=== PATIENT | female | born 1995 | race Caucasian/White ===

== ENCOUNTER 2024-11-24 10:12 | Outpatient (CLI) | payer OTHER, SELFPAY ==
--- NOTE | 2024-11-24 10:26 | CY_PTH ---
PATIENT: Beatrice Chacon LOC: ANHLAB #:[id number] AGE/SX: 29/F ROOM: RE11/24/[address]: Andrew Mcdonald MD : 1995 BED: DIS: 11/24/2024 SPEC #: [id number] RECD: 11/24/24 11:13 STATUS: JW REQ #: [id number] MARCIA: 11/24/24 10:[address]: Andrew Mcdonald DEPT: [facility] Cytology RECD BY: Paulina Galvan Tissues: A - Flow Procedures: Flow Cytometry
[2024-11-24 10:28] LABS: Basophils Percent Auto 0.2 % (0.2-1.2); Eosinophils Absolute Auto 0.9 K/mm3 (0-0.3); Eosinophils Percent Auto 9.2 % (0-4.4); Hemoglobin 10.3 g/dL (12.0-15.0); Immature Granulocyte Absolute 0.03 K/mm3 (0.00-0.031); Immature Granulocyte Percent A 0.3 % (0-0.5); Lymphocytes Absolute Auto 3.62 K/mm3 (0.9-3.2); Lymphocytes Percent Auto 37.5 % (18.3-44.2); Mean Corpuscular HGB Conc 33.2 g/dl (32-36); Mean Corpuscular Hemoglobin 29.7 pg (26-34); Mean Corpuscular Volume 89.3 fl (80-100); Mean Platelet Volume 8.5 fl (7.4-10.4); Monocytes Absolute Auto 0.4 K/mm3 (0.1-0.6); Monocytes Percent Auto 4.6 % (2.6-8.5); Neutrophils Absolute Auto 4.7 K/mm3 (1.3-6.7); Neutrophils Percent Auto 48.2 % (45.5-73.1); Platelet Count Result 436 k/mm3 (150-375); Red Blood Count 3.47 M/mm3 (4.2-5.4); Red Cell Distribution Width 13.7 % (11.5-14.5); White Blood Count 9.7 K/mm3 (4.5-10.0)
--- OUTSIDE RECORDS SUMMARY | 2024-11-24 10:56 | XMS_ITS | Encounter Summary ---
Author Organization [facility] Address 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 Restoration Specialist Name Role Phone Unavailable Primary Care Provider Unavailabl e Encounter Details Date Type Department Care Team ([facility] Contact Info) Description 10/03/2024 Telephone [facility] [address] [place] [address] Melissa Liriano, [facility] [id number] [place] [address] [phone] Social History Tobacco Use Types Packs/Day Years Used Date Smoking Tobacco: Former Cigarettes Alcohol Use Standard Drinks/Week Comments Not Currently 0 (1 standard drink = 0.6 oz pur e alcohol) Hx of binge drinking Food Insecurity Answer Date Recorded Patient needs follow up regardin 09/29/2024 Transportation Needs Answer Date Record ed Patient needs follow up regardin 09/29/2024 Utility Needs Answer Date Recorded Patient needs follow up regardin 09/29/2024 Education Answer Date Recorded What is the highest level of school you have completed or the highest degree you have received? Bachelor's degree (e.g., BA, AB, BS) 09/29/2024 Comments No Sex and Gender Information Value Date Recorded Sex Assigned at Not on file Legal Sex Female 10:15 PM CDT Gender Identity Not on file Sexual Orientation Not on file documented as of this encounter Plan of Treatment Upcoming Encounters Date Type Department Care Team (Late Contact Info) Description 12/01/2024 4:30 PM CDT Telephone Check Up [facility] Oncology and Hematology - Jimmy [address] [place] [address] Andrew Mcdonald MD [address] [place] [address] documented as of this encounter Visit Diagnoses Not on filedocumented in this encounter Additional Health Concerns Assessment Noted Time PHQ-9 Depression Total Score: 6 09/30/19 25 9:33 AM CDT documented as of this encounter
--- OUTSIDE RECORDS SUMMARY | 2024-11-24 10:56 | XMS_ITS | Data Portability ---
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 Patient will come back in a year unless there are new symptoms. [email or web address] Not available 11/22/2019 12:14:19 10/10/2022 10/10/2022 Annual gynecological exam performed. Patient will come back in a year unless there are new symptoms. [email or web address] Not available 10/10/2022 15:21:40 11/08/2024 11/08/2024 Annual gynecological exam performed. Patient will come back in a year unless there are new symptoms. [email or web address] Not available 11/08/2024 10:18:08 Plan of Treatment Reminders Order Date Submit Date Provider Last Modified By Organization Details Last Modified Time Details Appointments None recorded. Lab None recorded. Referral None recorded. Procedures None recorded. Surgeries None recorded. Imaging None recorded. Medication Orders ParaGard T 380A 380 square mm intrauterin e device 2022 023 [email or web address] Not available 11:42:05 Patient TargetsNo targets recorded. Patient InstructionsNo instructions recorded. Reason for Referral None Reported. Results Created Date Observation Date Name Description Value Unit Range Abnormal Flag Note LastModifiedBy Organization Detail LastModifiedTime 11/22/1911/24/2019 pap, LB Pap test thin prep Negati ve for Intrae pithel ial Lesion or Malign cuauhtemoc normal ACCES FLORINA #: [id number] [place] [address] e: Cervi rodney/E ndoce rvica l LMP: 10/25 Date Taken : 11/21 Speci men Type: ThinP rep Vial Date Repor maikel: 2019 Clini rodney Data: Cytot ech: Elisabeth Cadet , CT( CP) Date Repor maikel: 2019 Speci men Adequ acy: Satis facto ry for evalu ation Endoc ervic al/tr ansfo rmati on zone compo nent prese nt Gener al Categ oriza tion: NEGAT ISREAL FOR INTRA EPITH ELIAL LESIO N OR MALIG YUMIKO The follo wing tests have been order ed as reque sted and a separ ate repor t will be issue d: Chlam ydia, Gonor rhoea e, and Trich omona s This speci men has been yaya zed by the ThinP rep Imagi ng Syste m, an inter activ e compu ter syste m which denisa ts the [facility] of ThinP rep Pap Test slide s. Follo wing imagi ng, the slide was revie wed by a Cytot echno logis t and/o r Patho logis t. End of t Techn ical servi roselia provi ded by [facility] [employer] Patho logis [employer], d/b/a Yamila lubin, [address] [place] [address] Nikko Marx MD, Labor ator Dire tor. Case revie wed and diagn osis rende red at [facility] [employer] Patho logis Swidjit, [employer], d/b/a Yamila lubin, [address] [place] [address] Nikko Marx MD, Labor ator Dire tor. CONFI DENTI AL Not Available [facility] ([facility]) [address], [place], [address], 11/24/2019 14:06:36 11/22/19 20 11/24/2019 CT + NG DNA, PCR, unspe cifie d speci men trichomonas vaginalis, aptima (panther) NOT DETECT ED normal DNA testi ng perfo rmed by Trans cript ion Media maikel Ampli ficat ion (TMA) These resul ts shoul d be inter prete d in light of all clini rodney and labor atory findi ngs. This assay is highl y accur ate, but rare false posit isreal and negat isreal resul ts may occur . Posit isreal resul ts in low preva lence popul ation s may requi re re-ev aluat ion. A negat isreal resul t does not precl ude a possi ble infec tion due to a speci men inade quacy or sampl ing error . Test perfo rmed by [employer] [facility] [employer], [employer], d/b/a [facility], [address], [place] [address] , Izzy Bello ra, DO, Labor atory Direc tor. Not Available [facility] ([facility]) [address] [place] [address] [address], [place], [address], 11/24/2019 14:06:37 11/22/19 20 11/24/2019 CT + NG DNA, PCR, unspe cifie d speci men neisseria gonorrhoeae, aptima NOT DETECT ED normal DNA testi ng perfo rmed by Trans cript ion Media maikel Ampli ficat ion (TMA) These resul ts shoul d be inter prete d in light of all clini rodney and labor atory findi ngs. This assay is highl y accur ate, but rare false posit isreal and negat isreal resul ts may occur . Posit isreal resul ts in low preva lence popul ation s may requi re re-ev aluat ion. A negat isreal resul t does not precl ude a possi ble infec tion due to a speci men inade quacy or sampl ing error . Test perfo rmed by [employer] Patho logis Swidjit, [employer], d/b/a [facility], [address], [place] [address] , Izzy Bello ra, DO, Labor atory Direc tor. Not Available [facility] ([facility]) [address] [place] [address], [place], [address], 11/24/2019 14:06:37 11/22/19 20 11/24/2019 CT + NG DNA, PCR, unspe cifie d speci men chlamydia trachomatis, aptima NOT DETECT ED normal DNA testi ng perfo rmed by Trans cript ion Media maikel Ampli ficat ion (TMA) These resul ts shoul d be inter prete d in light of all clini rodney and labor atory findi ngs. This assay is highl y accur ate, but rare false posit isreal and negat isreal resul ts may occur . Posit isreal resul ts in low preva lence popul ation s may requi re re-ev aluat ion. A negat isreal resul t does not precl ude a possi ble infec tion due to a speci men inade quacy or sampl ing error . Test perfo rmed by [facility], d/b/a Yamila lubin, [address] [place] [address], [place] [address] , Izzy Bello ra, DO, Labor atory Direc tor. Not Available [facility] ([facility]) [address] [place] [address] [address], [place], [address], 11/24/2019 14:06:37 08/30/19 23 08/29/2022 CT/GC AND TRICH OMONA S VAGIN CAMERON (RRNA ), URINE chlamydia trachomatis, PCR Negati ve negati ve Not Available [facility] (Lab) [address], [place], [address], 08/30/2022 13:51:28 08/30/19 23 08/29/2022 CT/GC AND TRICH OMONA S VAGIN CAMERON (RRNA ), URINE neisseria gonorrhoeae, PCR Negati ve negati ve Not Available [facility] (Lab) [address] [facility], [place], [address], 08/30/2022 13:51:28 08/30/19 23 08/29/2022 CT/GC AND TRICH OMONA S VAGIN CAMERON (RRNA ), URINE trichomonas vaginalis ribosomal RNA (rrna) Negati ve negati ve Not Available [facility] (Lab) [address] [facility], [place], [address], 08/30/2022 13:51:28 10/11/19 23 10/10/2022 IMAGE GUIDE D PAP AND HPV REGAR DLESS image guided Pap, HPV regardless of Pap result SEE RESULT S BELOW CASE REPOR T: Cytol ogy Gynec ologi rodney Repor t Case: [id number] Aut[address] presley garcia Provi melanie: [place] 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 FINAL DIAGN OSIS: Negat isreal for Intra epith elial Janis n or Migdalia ycr (NIL) . Ankur irwin brian d by Kimberly Powell CT on 023 at 9:25 AM ----- ----- ----- ----- ----- ----- ----- ----- ----- ----- ----- ----- ----- ----- ----- ----- ----- ---- HPV RESUL TS: HPV mRNA E6/E7 : No HPV mRNA Detec maikel NOTE: This high risk HPV mRNA assay detec ts fourt een high- risk HPV types (16, 18, 31, 33, 35, 39, 45, 51, 52, 56, 58, 59, 66, 68) witho ut diffe renti ation . COMME NT: This speci men was revie wed by a Cytot echno logis t and/o r Patho logis t (as indic ated in this repor t) after evalu ation using the Thinp rep Imagi ng Syste m. CLINI RODNEY INFOR MATIO N: Menst rual Statu s: LMP (if appli cable ): Clini rodney Histo ry/Pr eviou s Pap: Type of Neopl ariadna (if appli cable ): Signi fican t Clini rodney Findi ngs: Other Histo ry: Hormo robyn (if appli cable ): PAP EDUCA NAIMA L NOTE: The Pap Test is a scree david test with an inher ent false negat isreal rate. Liqui d-bas ed sampl ing may decre ase, but will not elimi timmy, false negat isreal resul ts. A negat isreal resul t does not precl ude the prese nce and/o r devel opmen t of disea se, since the prese nce of abnor mal cells in the sampl e depen ds on the locat ion of the lesio n and sampl ing techn ique. Wei nued regul ar scree david is the best metho d of cance r preve ntion . If repor maikel cytol ogic findi ng do not corre late with physi rodney and/o r histo rical findi ngs, furth er inves tigat ion is recom bharat d, as clini espinoza bull nted. Not Available [facility] (Lab) [address] [facility], [place], [address], 10/14/2022 10:27:48 Result Notes None recorded. Procedures Surgical History Date Name Laterality Status Provider Name and Address Organization Details Recorded Time 3 IUD Insertion completed Talia Schmitz, [facility] [address], [place], [address], [facility] 08/29/2022 11:42:21 Imaging Results None recorded. Procedure Notes None recorded. Medical Equipment None Reported. Allergies No known drug allergies Medications Name Sig Start Date Stop Date Status Note LastModified by Organization Details LastModified Time buspirone 5 mg tablet TAKE 1 TABLET BY MOUTH TWICE DAILY 11/08 completed Not Available Not Available Not Available clonidine HCl 0.1 mg tablet TAKE 1 TABLET BY MOUTH TWICE DAILY 11/08 completed Not Available Not Available Not Available trazodone 50 mg tablet TAKE 1 TABLET BY MOUTH ONCE DAILY AT BEDTIME active Not Available Not Available No t Available meloxicam 15 mg tablet TAKE 1 TABLET BY MOUTH ONCE DAILY NEEDED FOR 30 DAYS active Not Available Not Available No t Available hydroxyzine HCl 25 mg tablet TAKE 1 TABLET BY MOUTH THREE TIMES DAILY NEEDED FOR ANXIETY OR SLEEP active Not Available Not Available No t Available mupirocin 2 % topical ointment APPLY OINTMENT TOPICALLY TO AFFECTED AREA TWICE DAILY active Not Available Not Available No t Available ergocalcife rol (vitamin D2) 1,250 mcg (50,000 unit) capsule TAKE 1 CAPSULE BY MOUTH ONCE A WEEK active Not Available Not Available No t Available methylpredn isolone 4 mg tablets in a dose pack TAKE BY MOUTH DIRECTED ON INSIDE OF PACKAGE STARTING ON 10/28/2411/08 completed Not Available Not Available Not Available ParaGard T 380A 380 square mm intrauterin e device Take 1 device every day by intrauter ine route as directed. 2022 active Not Available Not Available Not Avai lable hydroxyzine pamoate 25 mg capsule TAKE 1 CAPSULE BY MOUTH EVERY 4 HOURS NEEDED FOR ANXIETY 11/08 completed Not Available Not Available Not Available aripiprazol e 10 mg tablet TAKE 1 TABLET BY MOUTH ONCE DAILY active Not Available Not Available No t Available atomoxetine 40 mg capsule TAKE 1 CAPSULE BY MOUTH ONCE DAILY active Not Available Not Available No t Available aripiprazol e 5 mg tablet TAKE 1 TABLET BY MOUTH EVERY DAY 11/08 completed Not Available Not Available Not Available nitrofurant oin monohydrate /macrocryst als 100 mg capsule TAKE 1 CAPSULE BY MOUTH TWICE DAILY FOR 5 DAYS 11/08 completed Not Available Not Available Not Available duloxetine 30 mg capsule,del ayed release TAKE 1 CAPSULE BY MOUTH ONCE DAILY active Not Available Not Available No t Available duloxetine 60 mg capsule,del ayed release TAKE 1 CAPSULE BY MOUTH EVERY DAY 11/08 completed Not Available Not Available Not Available aripiprazol e 2 mg tablet TAKE 1 TABLET BY MOUTH EVERY DAY 11/08 completed Not Available Not Available Not Available lisdexamfet amine 60 mg capsule TAKE 1 CAPSULE BY MOUTH EVERY DAY active Not Available Not Available No t Available Vyvanse 40 mg capsule TAKE 1 CAPSULE BY MOUTH EVERY DAY IN THE MORNING 08/29 completed Not Available Not Available Not Available desvenlafax ine succinate ER 50 mg tablet,exte nded release 24 hr TAKE 1 TABLET BY MOUTH ONCE DAILY active Not Available Not Available No t Available desvenlafax ine succinate ER 100 mg tablet,exte nded release 24 hr TAKE 1 TABLET BY MOUTH EVERY DAY 11/08 completed Not Available Not Available Not Available desvenlafax ine succinate ER 25 mg tablet,exte nded release 24 hr TAKE 1 TABLET BY MOUTH EVERY DAY 11/08 completed Not Available Not Available Not Available Vitals Date Recorded Systolic blood pressure Diastolic blood pressure Provider Name and Address Organization Details Last Updated DateTime 08/29/2022 122 mm[Hg] 80 mm[Hg] Talia Schmitz, [facility] [address], [place], [address], [facility] 08/29/2022 11:15:21 Date Recorded Body height Body mass index (BMI) Body weight Provider Name and Address Organization Details Last Updated DateTime 08/29/2022 170.18 cm 33.3 kg/m2 60781.46 radha Chandler [facility] 08/29/2022 11:09:25 Date Recorded Systolic blood pressure Diastolic blood pressure Provider Name and Address Organization Details Last Updated DateTime 10/10/2022 130 mm[Hg] 80 mm[Hg] Talia Schmitz, [facility] [address], [place], [address], [facility] 10/10/2022 15:46:26 Date Recorded Body height Body mass index (BMI) Body weight Provider Name and Address Organization Details Last Updated DateTime 10/10/2022 170.18 cm 34.3 kg/m2 85047.73 g Violeta Mcclain [facility] 10/10/2022 15:22:22 Date Recorded Body height Body mass index (BMI) Body weight Systolic blood pressure Diastolic blood pressure Provider Name and Address Organization Details Last Updated DateTime 11/08/2024 170.18 cm 32.6 kg/m2 97120.21 g 109 mm[Hg] 78 mm[Hg] Breanne Mckeon [facility] 5 10:18:42 Date Recorded Body height Body mass index (BMI) Body weight Systolic blood pressure Diastolic blood pressure Provider Name and Address Organization Details Last Updated DateTime 11/22/2019 171.45 cm 30.6 kg/m2 80949.29 g 119 mm[Hg] 83 mm[Hg] Melyssa Stanley [facility] 0 12:21:46 Social History Question Answer Notes LastModified by Organizat ion Details LastModified Time Tobacco Smoking Status Former Smoker Darcy Espinozashlomo moser, [facility] 08/29/2022 11:09:43 How Many Years Have You Consumed Alcohol? 8 Information not available 08/29/2022 Are You Blind Or Do You Have Difficulty Seeing? No Information not available 08/29/2022 What Is Your Level Of Caffeine Consumption? Occasional Information not available 08/29/2022 How Much Tobacco Do You Chew? None Information not available 08/29/2022 In The 14 Days Before Symptom Onset, Have You Had Close Contact With A Laboratory-confir med COVID-19 While That Case Was Ill? No Information not available 08/29/2022 In The 14 Days Before Symptom Onset, Have You Had Close Contact With A Person Who Is Under Investigation For COVID-19 While That Person Was Ill? No Information not available 08/29/2022 Have You Been To An Area Known To Be High Risk For COVID-19? No Information not available 08/29/2022 Are You Deaf Or Do You Have Serious Difficulty Hearing? No Information not available 08/29/2022 What Type Of Diet Are You Following? REGULAR Information not available 08/29/2022 What Is The Highest Grade Or Level Of School You Have Completed Or The Highest Degree You Have Received? [id number] Information not available 08/29/2022 Are There Any Guns Present In Your Home? Yes Information not available 08/29/2022 Do You Use Protection During Sex? No Information not available 08/29/2022 Do You Use Your Seat Belt Or Car Seat Routinely? Yes Information not available 08/29/2022 Do You Have Smoke And Carbon Monoxide Detectors In Your Home? Yes Information not available 08/29/2022 How Much Tobacco Do You Smoke? No Information not available 08/29/2022 Do You Use Sunscreen Routinely? Yes Information not available 08/29/2022 Have You Used IV Drugs? No Information not available 08/29/2022 Do You Have Difficulty Walking Or Climbing Stairs? No Information not available 08/29/2022 Sex: Unknown Functional Status Question Answer Note LastModified by Organizat ion Details LastModified Time Do you use any illicit or recreational drugs? No Information not available 08/29/2022 What is your level of alcohol consumption? Occasional Information not available 08/29/2022 Are you able to walk? YESWOREST Information not available 08/29/2022 Are you able to care for yourself? 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 No Information not available 08/29/2022 What is your exercise level? Occasional Information not available 08/29/2022 Mental Status Question Answer Note LastModified by Organization D etails LastModified Time Do you feel stressed (tense, restless, nervous, or anxious, or unable to sleep at night)? [id number] Information not available 08/29/2022 Family History Relationship Description Onset Age of this Age Resolved Age Notes LastModified by Organization Details LastModified Time Father Hypertensive disorder [email or web address] Not available 2019 12:17:12 Sister Malignant tumor of cervix [email or web address] Not available 2019 12:17:39 Sister Cyst of ovary [email or web address] Not available 08/2024 09:48:12 Medical History Condition Response Allergies (Food, seasonal, environmental ) N Breast Cancer N Drug/Latex Allergies/Reactions N Blood Transfusion N Dermatologic Disorders N Lung Disease N Defects or Inherited Disease N Breast Problem N Gestational Diabetes N Hematologic disorders N Anesthesia Complications N History of STI Y Deep Vein Thrombosis N Polycystic ovary syndrome N Anxiety Disorder Y Autoimmune disease N Arthritis N Infertility N Polyps N Acid Reflux (GERD) N History of abnormal pap N Cancer N Stroke N Varicosities N Neurologic/Epilepsy N Endometriosis N High Cholesterol N Headaches N Fibromyalgia N Kidney Disease N Heart Problems N Kidney or Bladder Problems N Thyroid Problems N GI Problems N Eating Disorder N Anemia N Art (IVF or FET) N Psychiatric Illness N Ovarian Cancer N Diabetes N Pulmonary (TB, Asthma) N Hepatitis/Liver Disease N Eczema N Urinary Tract Infection N Abuse/Domestic Violence N Asthma N Trauma/Violence N Depression/ depression Y Heart Disease N Pre-Eclampsia N Hypertension N Osteoporosis N Thrombophilias N Gynecological History Statement/Question Response Date of Last Mammogram Flow Moderate Date of LMP 10/16/2024 N Was last menstrual period normal Y STIs/STDs Y Date of Last Colonoscopy None Desired Control Method IUD Abnormal Pap N On BCP's at Conception? N HPV Vaccine Y Duration of Flow (days) 5 Current Control Method IUD Are cycles usually normal Y Frequency of Cycle (Q days) 30 Sexually Active? Y Menses Monthly Y Date of DEXA bone scan Age of first menstrual cycle 12 Date of Last Pap Smear Sexual Problems? N LMP Definite N Obstetrics History GPAL:G 0 P 0 0 0 0 Past Encounters Encounter ID Performer Location Encounter Start Date Encounter Closed Date Diagnosis/Indication Diagnosis SNOMED-CT Code Diagnosis ICD10 Code Diagnosis Note [id number] Talia Schmitz [facility] [address] [address] 11/22/2019 12:10:51 11/22/2019 16:54:55 Gynecologic examination 84794030 Z01.419 Take Calcium with Vitamin D 1200mg daily if not receiving in daily diet. It is strongly advised to have an annual flu shot and up can obtain at most pharmacies . If you have not had a TDap shot in the last 10 years you should obtain one as well. Discussed with patient & provided with informatio n regarding Gardisil vaccine to prevent the 4 strains for HPV that cause cervical cancer if under age 26. Encourage safe sexual practices, to use condoms and limit partners if not already in a monogamous relationsh ip. Do monthly self breast exams. Have mammogram yearly or every other year depending on family history. BRCA testing is now available for patients with strong genetic history of female cancer. If interested contact the office. Engage in daily exercise of low impact aerobic exercise 45-60 minutes 4-5 times weekly. Avoid tobacco and illicit drugs as well as using moderation with alcohol intake less than 1-2 8 oz beverages daily. This lifestyle behavior pattern will lead to less health conditions and longer life span. If BMI greater than 25 weight watchers or dietary consult advised. Patient received above instructio ns, and questions have been answered. If you have any questions please call or respond to this email. Patient was made aware of the patient portal and may obtain a paper copy of today's plan if desired. [facility] ion care management [id number] Z30.9 Discussed all control options and pt would like Paraguard IUD. I have discussed in detail all risks and benefits including risk of infection and perforatio n. She understand s she will need to contact office with next menses or may abstain, complete serum HCG day before placement, if neg can have IUD placed next day. Aware of need to verify with insurance device coverage. Literature given. All questions answered to patient satisfacti on. [id number] Talia Schmitz , [facility] [address] [address] 08/29/2022 11:00:46 08/29/2022 11:50:03 Insertion of intrauterine contraceptive device [id number] Z30.430 She has been counseled on all of the r/b/a of placement of an intrauteri ne device that include but are not limited to uterine perforatio n, injury to cervix, vagina, bladder, and bowel.Risk s of bleeding due to injury or increased irregular bleeding due to progestin effect of the device. Risks of infection would be increased within the first 21 days of placement with concommita nt cervicitis . She understand s that the device will need to be removed in this instance due to increased risk of Pelvic inflammato ry disease. Patient is aware she is at higher risk for STD and if contracted she could lose her fertility. Pt is aware that if occurs that she should contact office immediatel y to rule out ectopic which could be life threatenin g. IUD will also need to be removed and this could cause miscarriag e. Patient also informed that in the event her strings are absent or embedded at the time of removal she may need to have the IUD surgically removed. She was informed of the above and properly consented. IUD placed w/o complicati on. Patient should return to office after next period to check for string placement. Patient to expect irregular bleeding but should be seen in the ED if bleeding increases to soaking a pad an hour for at least 2 hours. She verbalized understand ing. RTO x 6wks for string check & we will also complete her WWE with pap smear at that time as discussed. STD urine sent today [id number] Talia Schmitz , [facility] [address] [address] 10/10/2022 15:13:53 10/10/2022 15:50:59 Gynecologic examination [id number] Z01.419 Take Calcium with Vitamin D 1200mg daily if not receiving in daily diet. It is strongly advised to have an annual flu shot and up can obtain at most pharmacies . If you have not had a TDap shot in the last 10 years you should obtain one as well. Discussed with patient & provided with informatio n regarding Gardisil vaccine to prevent the 4 strains for HPV that cause cervical cancer if under age 26. Encourage safe sexual practices, to use condoms and limit partners if not already in a monogamous relationsh ip. Do monthly self breast exams. Have mammogram yearly or every other year depending on family history. BRCA testing is now available for patients with strong genetic history of female cancer. If interested contact the office. Engage in daily exercise of low impact aerobic exercise 45-60 minutes 4-5 times weekly. Avoid tobacco and illicit drugs as well as using moderation with alcohol intake less than 1-2 8 oz beverages daily. This lifestyle behavior pattern will lead to less health conditions and longer life span. If BMI greater than 25 weight watchers or dietary consult advised. Patient received above instructio ns, and questions have been answered. If you have any questions please call or respond to this email. Patient was made aware of the patient portal and may obtain a paper copy of today's plan if desired. Pap sent STD Screen already UTD Genetic Screen discussed Colon Screen na Dexa Screen na Routine Labs PCPMammo-n a Intrauteri ne device check [id number] Z30.431 Patient is here for 4-6wk IUD string check. She denies complicati ons, pain, or unpleasant side effects. Happy with this control method. Wishes to continue. [id number] AMADO Agarwal [facility] [address] [address] 11/08/2024 09:47:56 11/08/2024 10:49:17 Gynecologic examination [id number] Z01.419 WWEBC - ParaGuard IUD (inserted 08/29/2022 and will 08/28/2032) Pap - UTD/not indicated todaySTI screen - declinedRo utine labs - PCPRTC in 1 yr or sooner if needed It is strongly advised to have an annual flu shot and up can obtain at most pharmacies . If you have not had a TDap shot in the last 10 years you should obtain one as well. Discussed with patient & provided with informatio n regarding the HPV vaccine if applicable . Encourage safe sexual practices, to use condoms and limit partners if not already in a monogamous relationsh ip. Do monthly self breast exams. BRCA testing is now available for patients with strong genetic history of female cancer. If interested contact the office. Engage in regular exercise. Avoid tobacco and illicit drugs. This lifestyle behavior pattern will lead to less health conditions and longer life span. If BMI greater than 25 dietary consult advised. Questions answered. Health Concerns Section Related Observation LastModified by Organization Detai ls LastModified Time None Recorded Concern Status LastModified by Organization Details LastModified Time None Recorded Advance Directives Directive None Recorded Payers Insurance Date Sequence Insurance Name Policy Number Policy Fischer Covered Member ID Fischer Member ID Guarantor Name 08/28/2022 1 [place] [id number] Beatrice Chacon [id number] Beatrice Chacon 11/06/2024 1 [facility] - DOS ON OR AFTER 20 (MEDICAID REPLACEMENT - HMO) Beatrice Chacon [id number] [facility] 11/06/2024 1 TYLER [id number] Beatrice Saunders [facility] [id number] [facility] Notes Date Note Type Note Provider Name and Address Organization Details Recorded Time 11/22/2019 text/html Annual GYNReport ed bypatient.History:n o gynecologic complaints Menstrual cycle:Normal menses Urinary symptoms:No hematuria; No incontinence Vulva:No genital lesion Vagina:Normal vaginal discharge Breast:No breast pain; No breast lump; No nipple discharge Current Contraception:Monog amous relationship; Wants to discuss contraceptive options Sexual complaints:No sexual complaints; No pain during intercourse; Normal libido Menopausal Symptoms:No menopausal symptoms; Normal vaginal lubrication Psychological symptoms:No depression; No anxiety; No PMDD Preventive measures:Encourage self breast examination; Encourage regular exercise; Encourage no tobacco use GANESH Goldstein [address], [place], [address], [facility] 11/22/2019 15:47:16 08/29/2022 text/html Patient presents for IUD insertion. GANESH Goldstein [address], [place], [address], [facility] 08/29/2022 11:42:42 10/10/2022 text/html Annual GYNReport ed bypatient.Menstrual cycle:Normal menses Urinary symptoms:No hematuria; No incontinence Vulva:No genital lesion Vagina:Normal vaginal discharge Breast:No breast pain; No breast lump; No nipple discharge Current Contraception:Satis fied with current contraception; Intrauterine device (iud) (Paraguard) Sexual complaints:No sexual complaints; No pain during intercourse; Normal libido Menopausal Symptoms:No menopausal symptoms; Normal vaginal lubrication Psychological symptoms:No depression; No anxiety; No PMDD Preventive measures:Encourage self breast examination; Encourage regular exercise; Encourage no tobacco use; Encourage regular mammograms starting age 40; Followed with yearly pap smears GANESH Goldstein [address], [place], [address], [facility] 10/10/2022 15:50:21 11/08/2024 text/html Annual GYNReport ed bypatient.Menstrual cycle:Normal menses Urinary symptoms:No hematuria; No incontinence Vulva:No genital lesion Vagina:Normal vaginal discharge Breast:No breast pain; No breast lump; No nipple discharge Current Contraception:Satis fied with current contraception; Intrauterine device (iud) Sexual complaints:No sexual complaints; No pain during intercourse; Normal libido Menopausal Symptoms:No menopausal symptoms; Normal vaginal lubrication Psychological symptoms:No depression; No anxiety; No PMDD Preventive measures:Encourage self breast examination; Encourage regular exercise; Encourage no tobacco use; Encourage regular mammograms starting age 38Notes:29yo wweBC - ParaGuard IUD (inserted 08/29/2022)no h/o abnormal papslast pap 10/2022 : nilm, HPV (-) AMADO Agarwal [address], [place], [address], [facility] 11/08/2024 10:48:22 OBGyn Episode No OBEpisode recorded.
--- OUTSIDE RECORDS SUMMARY | 2024-11-24 10:56 | XMS_ITS | Clinical Summary ---
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 Active hydrOXYzine HCL (ATARAX) 25 mg tablet Take 25 mg by mouth 3 times daily as needed for Anxiety. Active traZODone (DESYREL) 50 mg tablet Take 50 mg by mouth daily at bedtime. Active atomoxetine (STRATTERA) 40 mg capsule Take 1 Capsule (40 mg) by mouth daily. 30 Capsule Active DULoxetine (CYMBALTA) 30 mg Capsule, Delayed Release(E.C.) Take 60 mg by mouth daily. Active desvenlafaxine (PRISTIQ) 100 mg Extended Release 24 hour tablet Take by mouth daily with breakfast. 11/17/19 25 Discontinu ed(Duplica te Therapy) Active Problems Problem Noted Date Diagnosed Date Major depressive disorder, recurrent, moderate 0 09/29/2024 FRANK (generalized anxiety disorder) 09/29/2024 Brief psychotic disorder 09/29/2024 Encounters Date Type Department Care Team Description 11/21/2024 Abstract [facility] Oncology [facility] Hematology [address] [place] [id number] Andrew Mcdonald MD 11/16/2024 3:00 PM CDT Office Visit [facility] Oncology and Hematology - [address] [place] [phone] Andrew Mcdonald MD Leukocytosis, unspecified type (Primary Dx) 10/26/2024 8:53 AM CDT - 10/26/2024 11:59 PM CDT Hospital Encounter [facility] [address] [place] [address] [place] [address] Radha Pro, VISH Discharge Disposition: Home or Self Care 10/25/2024 9:00 AM CDT - 10/25/2024 11:59 PM CDT Hospital Encounter [facility] [address] [place], [place] [address] [address] Radha Pro NP Discharge Disposition: Home or Self Care 10/20/2024 9:00 AM CDT - 10/20/2024 11:59 PM CDT Hospital Encounter [facility] [address] [place], [place] [address] [address] Radha Pro NP Discharge Disposition: Home or Self Care 10/19/2024 9:00 AM CDT - 10/19/2024 11:59 PM CDT Hospital Encounter [facility] [address] [place], [place] [address] [address] Radha Pro, VISH Discharge Disposition: Home or Self Care 10/18/2024 9:00 AM CDT - 10/18/2024 11:59 PM CDT Hospital Encounter [facility] [address] [place], [place] [address] [address] Radha Pro NP Discharge Disposition: Home or Self Care 10/13/2024 9:00 AM CDT - 10/13/2024 11:59 PM CDT Hospital Encounter [facility] [address] [place], [place] [address] [address] Radha Pro NP Discharge Disposition: Home or Self Care 10/12/2024 9:00 AM CDT - 10/12/2024 11:59 PM CDT Hospital Encounter [facility] [address] [place] [address] Radha Pro, VISH Discharge Disposition: Home or Self Care 10/11/2024 9:00 AM CDT - 10/11/2024 11:59 PM CDT Hospital Encounter [facility] [address] [place] [address] [place] [address] Radha Pro, VISH Discharge Disposition: Home or Self Care 10/06/2024 9:00 AM CDT - 10/06/2024 11:59 PM CDT Hospital Encounter [facility] [address] [place] [address] Radha Pro, VISH Discharge Disposition: Home or Self Care 10/05/2024 9:00 AM CDT - 10/05/2024 11:59 PM CDT Hospital Encounter [facility] [address] [place] [address] [place] [address] Radha Pro, VISH Discharge Disposition: Home or Self Care 10/04/2024 9:00 AM CDT - 10/04/2024 11:59 PM CDT Hospital Encounter [facility] [address] [place] [address] [place] [address] Radha Pro, VISH Discharge Disposition: Home or Self Care 10/03/2024 Telephone [facility] [address] [place] [address] [place] [address] Melissa Liriano LPC 09/30/2024 Telephone [facility] [address] [place] [address] [place] [address] Brinda Duval, JAMAAL Follow Up 09/29/2024 8:00 AM CDT - 09/29/2024 11:59 PM CDT Hospital Encounter [facility] [address] [place] [address] Radha Pro NP Discharge Disposition: Home or Self Care 09/28/2024 [facility] [address] [place] [address] Brinda Duval, EXCEPTIONAL NEEDS TEACHER Follow Up 09/27/2024 [facility] [address] [place] [address] Brinda Duval, EXCEPTIONAL NEEDS TEACHER Follow Up 09/26/2024 [facility] [address] [place] [address] Brinda Duval, EXCEPTIONAL NEEDS TEACHER Follow Up 09/26/2024 [facility] [address] [place] [address] Brinda Duval, EXCEPTIONAL NEEDS TEACHER Follow Up 09/23/2024 [facility] [address] [place] [address] Brinda Duval, EXCEPTIONAL NEEDS TEACHER Follow Up 09/22/2024 [facility] [address] [place] [address] Brinda Duval, EXCEPTIONAL NEEDS TEACHER Follow Up 09/21/2024 [facility] [address] [place] [phone] Brinda Duval, EXCEPTIONAL NEEDS TEACHER Follow Up 09/20/2024 External Device Data [facility] Provider, Abstract 09/20/2024 External Device Data [facility] Provider, Abstract 09/20/2024 External Device Data [facility] Provider, Abstract 09/19/2024 8:14 AM CDT - 09/19/2024 11:59 PM CDT Hospital Encounter [facility] [address] [place] [phone] Daly Luu MD [facility] Intake, Nurse Discharge Disposition: Home or Self Care from Last 3 Months Family History Medical History Relation Name Comments No Known Problems Brother Anxiety Father Arthritis Father Depression Father Heart Disease Father Hypertension Father Anxiety Mother Depression Mother Heart Disease Mother Hypertension Mother No Known Problems Sister 1 No Known Problems Sister 2 No Known Problems Sister 3 Relation Name Status Comments Brother Father Alive Mother Sister 1 Alive Sister 2 Alive Sister 3 Alive Social History Tobacco Use Types Packs/Day Years Used Date Smoking Tobacco: Former Cigarettes Q uit: 11/16/2022 Tobacco Cessation:Counseling Given: Not Answered Alcohol Use Standard Drinks/Week Comments Not Currently [...] on file Sexual Orientation Not on file Last Filed Vital Signs Vital Sign Reading Time Taken Comments Blood Pressure 114/73 11/16/2024 2:37 PM CDT Pulse 104 11/16/2024 2:37 PM CDT Temperature 36.6 C (97.9 F) 11/16/2024 2:37 PM CDT Respiratory Rate 14 11/16/2024 2:37 PM CDT Oxygen Saturation 98% 11/16/2024 2:37 PM CDT Inhaled Oxygen Concentration - - Weight 96.1 kg (211 lb 12.8 oz) 11/16/2024 2:37 PM CDT Height 170.2 cm (5' 7) 11/16/2024 2:37 PM CDT Body Mass Index 33.17 11/16/2024 2:37 PM CDT Plan of Treatment Upcoming Encounters Date Type Department Care Team (Late st Contact Info) Description 12/01/2024 4:30 PM CDT Telephone Check Up [facility] Oncology and Hematology - [address] [place] [address] Andrew Mcdonald MD [address] [place] [address] Health Maintenance Due Date Last Done Comments HEPATITIS B VACCINES (1 of 3 - 19+ 3-dose series) 2012 HPV/Cotest (21-29) 2014 HPV/Cotest (30-65) 2023 INFLUENZA VACCINE (#1) 2024 COVID-19 Vaccine (2023- season) 2024 03/14/2021, 02/14/2021 CERVICAL CANCER SCREENING 10/10/2025 PAP SMEAR 10/10/2025 10/10/2022 Preventative Visit-Managed Medicaid 11/09/2025 11/08/2024, 10/10/2022, 11/22/2019, Additional history exists DTAP/TDAP/TD VACCINES (2 - Td or Tdap) 05/22/2026 05/22/2016 HPV VACCINES Aged Out No longer eligi ble based on patient's age to complete this topic Insurance MEDICAID [place] Advance Directives For more information, please contact: [phone] Documents on File Type Date Recorded 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
--- OUTSIDE RECORDS SUMMARY | 2024-11-24 10:56 | XMS_ITS | Referral Summary ---
Author Organization [facility] Address [address] [place] [id number] Care Team Providers Care Log Loader Name Role Phone Sahara Rapp NP Primary Care Provider Encounters Date Type Department Care Team Description 09/30/2024 11:50 AM CDT - 09/30/2024 12:[address] [facility] Emergency Department [address] [place] [phone] Cystitis (Primary Dx); Leukocytosis, unspecified type Discharge Disposition: Discharge to home or self care 08/30/2024 8:20 PM CDT - 08/31/2024 5:[address] [facility] Emergency Department [address] [place] [phone] Tico Coe Jr., MD Abbeg, Art Mary, Suicidal ideation (Primary Dx) Discharge Disposition: Discharge to a short term hospital for IP from Last 3 Months Allergies No known active allergies Medications hydrocortisone (ANUSOL-HC) 25 mg suppository Insert 1 suppository (25 mg total) into the rectum 2 (two) times a day 12 suppository 10/01/19 25 Active Active Problems Problem Noted Date Diagnosed Date Anxiety 10/23/2016 Immunizations Immunization Administration Dates Next Due Tdap 05/22/2016 Social History Tobacco Use Types Packs/Day Years Used Date Smoking Tobacco: Never Assessed Personal Safety Answer Date Recorded Have you ever been in or are you currently in a harmful physical or emotional relationship or is someone making you feel afraid or unsafe? Denies 09/30/2024 Comments No Sex and Gender Information Value Date Recorded Sex Assigned at Not on file Legal Sex Female 12:49 AM [employer] Gender Identity Not on file Sexual Orientation Not on file Last Filed Vital Signs Vital Sign Reading Time Taken Comments Blood Pressure 114/75 09/30/2024 12:55 PM CDT Pulse 94 09/30/2024 12:55 PM CDT Temperature 36.8 C (98.3 F) 09/30/2024 10:53 AM CDT Respiratory Rate 18 09/30/2024 12:55 PM CDT Oxygen Saturation 99% 09/30/2024 12:55 PM CDT Inhaled Oxygen Concentration - - Weight 93.5 kg (206 lb 2.1 oz) 09/30/2024 10:53 AM CDT Height 172.7 cm (5' 8) 09/30/2024 10:53 AM CDT Body Mass Index 31.34 09/30/2024 10:53 AM CDT Plan of Treatment Not on file Procedures Procedure Name Priority Date/Time Associated Diagnosis Comments URINALYSIS, MICROSCOPIC ONLY STAT 09/30/2024 11:11 AM CDT URINE CULTURE STAT 09/30/2024 11:11 AM CDT URINALYSIS AND REFLEX TO MICROSCOPIC AND CULTURE STAT 09/30/2024 11:11 AM CDT POCT HCG, URINE Routine 09/30/2024 11:05 AM CDT EGFR STAT 09/30/2024 11:02 AM CDT DIFFERENTIAL AUTO STAT 09/30/2024 11: 02 AM CDT COMPREHENSIVE METABOLIC PANEL STAT 09/30/2024 11:02 AM CDT CBC WITH AUTO DIFFERENTIAL STAT 09/30/2024 11:02 AM CDT DIFFERENTIAL AUTO STAT 08/31/2024 10: 10 AM CDT CBC WITH AUTO DIFFERENTIAL STAT 08/31/2024 10:10 AM CDT URINALYSIS, MICROSCOPIC ONLY STAT 08/30/2024 8:29 PM CDT DRUGS OF ABUSE SCREEN, URINE WITHOUT CONFIRMATION STAT 08/30/2024 8:29 PM CDT URINALYSIS AND REFLEX TO MICROSCOPIC AND CULTURE STAT 08/30/2024 8:29 PM CDT POCT HCG, URINE Routine 08/30/2024 8:25 PM CDT SALICYLATE LEVEL STAT 08/30/2024 8:18 PM CDT ACETAMINOPHEN LEVEL STAT 08/30/2024 8 :18 PM CDT EGFR STAT 08/30/2024 8:18 PM CDT DIFFERENTIAL AUTO STAT 08/30/2024 8:1 8 PM CDT ETHANOL STAT 08/30/2024 8:18 PM CDT THYROID FUNCTION CASCADE STAT 08/30/2024 8:18 PM CDT COMPREHENSIVE METABOLIC PANEL STAT 08/30/2024 8:18 PM CDT CBC WITH AUTO DIFFERENTIAL STAT 08/30/2024 8:18 PM CDT INFLUENZA A/B, RSV, AND COVID-19 PCR STAT 08/30/2024 8:18 PM CDT from Last 3 Months Results * (ABNORMAL) Urinalysis reflex to microscopic and culture Urine (09/30/2024 11:11 AM CDT) Color, ur Lucy Yellow Comment:Testing performed by : [address] [address] Clarity, ur Turbid(A) Clear YANCY Comment:Testing performed by : [address] [address] Specific gravity, ur 1.020 1.003 - 1.030 YANCY Comment:Testing performed by : [address] [address] pH, urine 6.0 YANCY Comment: Interpretive Data U rine pH is affected by diet, medications, systemic acid-base disturbances, and renal tubular function. pH may affect urinary stone formation. For example, urine pH below 6.0 may help reduce the tendency for calcium phosphate stones and pH greater than 6.0 may reduce the tendency for uric acid stone formation. Source: [facility] Current Interpretive Data was last revised on 2017 Testing performed by: [address] [address] Protein, ur ql 2+(A) Negative YANCY Comment:Testing performed by : [address] [address] Glucose, ur ql Negative Negative YANCY Comment:Testing performed by : [address] [address] Ketones, ur Negative Negative YANCY Comment:Testing performed by : [address] [address] Bilirubin, ur Negative Negative YANCY Comment:Testing performed by : [address] [address] Blood, ur 3+(A) Negative YANCY Comment:Testing performed by : [address] [address] Urobilinogen, ur 2.0(A) <2.0 mg/dL YANCY Comment:Testing performed by : [address] [address] Nitrite, ur Positive(A) Negative YANCY Comment:Testing performed by : [address] [address] Leukocyte esterase, ur 4+(A) Negative YANCY Comment:Testing performed by : [address] [address] UA reflex comment Reflex to microscopic UA will be performed. YANCY Comment:Testing performed by : [address] [address] Urine 09/30/2024 11:1 1 AM CDT 09/30/2024 11:19 AM CDT Nitin Mckeon MD LAB MICROBIOLOGY - GEN ERAL ORDERABLES Final Result Performing Organization Address [facility] de Phone Number YANCY [address] [facility] [place] [address] * (ABNORMAL) Urinalysis, microscopic only (09/30/2024 11:11 AM CDT) WBC, ur >50(A) 0 - 5 /HPF Comment:Testing performed by : [address] [address] RBC, ur >50(A) 0 - 2 /HPF YANCY Comment:Testing performed by : [address] [address] Epithelial cells, squamous, ur >50(A) 0 - 5 /HPF YANCY Comment:Testing performed by : [address] [address] Bacteria, ur 4+(A) YANCY Comment:Testing performed by : [address] [address] Culture Reflex Comment Reflex to urine culture will be performed. YANCY Comment:Testing performed by : [address] [address] Urine 09/30/2024 11:1 1 AM CDT 09/30/2024 11:19 AM CDT Nitin Mckeon MD LAB URINE ORDERABLES F inal Result Performing Organization Address [facility] Co de Phone Number YANCY [address] [facility] [place] [address] * (ABNORMAL) Urine culture Urine (09/30/2024 11:11 AM CDT) Report Final Report: Greater than or equal to 100,000 colonies/mL of Escherichia coli (.) Comment:Testing performed by : [facility], [address] [place]., [address] Organism ESCHERICHIA COLI YANCY Urine 09/30/2024 11:1 1 AM CDT 09/30/2024 1:48 PM CDT Narrative YANCY - 10/02/2024 10:37 AM CDT Urine culture reflexed based upon urinalysis results. Testing performed by [facility] Microbiology Laboratory ([phone]) Organism Antibiotic Method Susceptibility Escherichia coli Ampicillin INTERPRETATION Resistant Escherichia coli Cefazolin INTERPRETATION Susceptible Escherichia coli Nitrofurantoin INTERPRETATION Susceptible Escherichia coli Gentamicin INTERPRETATION Susceptible Escherichia coli Trimethoprim with Sulfamethoxazole IN TERPRETATION Resistant Escherichia coli Meropenem INTERPRETATION Susceptible Escherichia coli Cefepime INTERPRETATION Susceptible Escherichia coli Ciprofloxacin INTERPRETATION Susceptible Escherichia coli Ceftazidime INTERPRETATION Susceptible Escherichia coli Ceftriaxone INTERPRETATION Susceptible Escherichia coli Piperacillin/Tazobactam INTERPRETATIO N Susceptible Escherichia coli Cephalexin INTERPRETATION Susceptible Escherichia coli Cefuroxime-axetil INTERPRETATION Susceptible Escherichia coli Cefdinir INTERPRETATION Susceptible us Nitin Mckeon MD LAB MICROBIOLOGY - GEN ERAL ORDERABLES Final Result YANCY [address] [facility] [place] [address] * POCT hCG, urine (09/30/2024 11:05 AM CDT) Pathologist [facility] HCG, ur, POC Negative Negative Lot Number [id number] QC Backgroud Clear Acceptable QC Control Line Acceptable Urine 09/30/2024 11:0 5 AM CDT [facility] POINT [facility] CARE TEST ORDERABLES F inal Result * eGFR (09/30/2024 11:02 AM CDT) [facility] eGFR 77 >=60 mL/min/1. 73 m2 Comment: Interpretive Data Reference Interval Normal >/= 90 mL/min/1.73m2 Mildly decreased* 60 - 89 mL/min/1.73m2 Mildly to moderately decreased 45 - 59 mL/min/1.73m2 Moderately to severely decreased 30 - 44 mL/min/1.73m2 Severely decreased 15 - 29 mL/min/1.73m2 Kidney Failure < 15 mL/min/1.73m2 *Relative to young adult level Estimated glomerular filtration rate is determined by the 2020 CKD-EPI equation recommended by the National Kidney [employer] (A Unifying Approach to GFR Estimation: Recommendations of the NKF-ASK Task Force on Reassessing the Inclusion of Race in Diagnosing Kidney Disease, JASN 2020). The CKD-EPI equation should not be used for patients with unstable renal function and has not been validated in children and those over 70. Current interpretive data was last reviewed 2021. Testing performed by: [address] [address] Blood 09/30/2024 11:0 2 AM CDT 09/30/2024 11:19 AM CDT us Nitin Mckeon MD LAB BLOOD ORDERABLES F inal Result [facility] [place] [address] * (ABNORMAL) Differential, auto (09/30/2024 11:02 AM CDT) Neutrophil abs 9.39(H) 1.50 - 6.50 K/cumm Comment:Testing performed by : [address] [address] Imm gran abs 0.05 0.00 - 0.10 K/cumm YANCY Comment:Testing performed by : [address] [address] Lymphocyte abs 3.40(H) 0.80 - 3.30 K/cumm YANCY Comment:Testing performed by : [address] [address] Monocyte abs 0.96(H) 0.20 - 0.80 K/cumm YANCY Comment:Testing performed by : [address] [address] Eosinophil abs 0.06 0.00 - 0.50 K/cumm YANCY Comment:Testing performed by : [address] [address] Basophil abs 0.04 0.00 - 0.10 K/cumm YANCY Comment:Testing performed by : [address] [address] Neutrophil pct 67.5 % [facility] Comment: Interpretive Data Percent cell count reference ranges are not reported, since discordance with absolute values may lead to misinterpretation of CBC data. Current Interpretive Data was last revised on 2017. Testing performed by: [address] [address] Imm gran pct 0.4 % [facility] Comment: Interpretive Data Percent cell count reference ranges are not reported, since discordance with absolute values may lead to misinterpretation of CBC data. Current Interpretive Data was last revised on 2017. Testing performed by: [address] [address] Lymphocyte pct 24.5 % [facility] Comment: Interpretive Data Percent cell count reference ranges are not reported, since discordance with absolute values may lead to misinterpretation of CBC data. Current Interpretive Data was last revised on 2017. Testing performed by: [address] [address] Monocyte pct 6.9 % [facility] Comment: Interpretive Data Percent cell count reference ranges are not reported, since discordance with absolute values may lead to misinterpretation of CBC data. Current Interpretive Data was last revised on 2017. Testing performed by: [address] [address] Eosinophil pct 0.4 % [facility] Comment: Interpretive Data Percent cell count reference ranges are not reported, since discordance with absolute values may lead to misinterpretation of CBC data. Current Interpretive Data was last revised on 2017. Testing performed by: [address] [address] Basophil pct 0.3 % [facility] Comment: Interpretive Data Percent cell count reference ranges are not reported, since discordance with absolute values may lead to misinterpretation of CBC data. Current Interpretive Data was last revised on 2017. Testing performed by: [address] [address] Blood 09/30/2024 11:0 2 AM CDT 09/30/2024 11:19 AM CDT us Nitin Mckeon MD LAB BLOOD ORDERABLES F inal Result [facility] [address] [facility] [place] [address] * (ABNORMAL) CBC with auto differential (09/30/2024 11:02 AM CDT) WBC 13.90(H) 3.80 - 9.90 K/cumm Comment:Testing performed by : [address] [address] Hgb 11.3(L) 11.9 - 15.5 g/dL YANCY Comment:Testing performed by : [address] [address] Hct 33.5(L) 35.6 - 45.5 % YANCY Comment:Testing performed by : [address] [address] Plt 443(H) 150 - 400 K/cumm YANCY Comment:Testing performed by : [address] [address] MPV 9.0(L) 9.1 - 12.3 fL YANCY Comment:Testing performed by : [address] [address] RBC 3.84(L) 3.90 - 5.20 M/cumm YANCY Comment:Testing performed by : [address] [address] MCV 87.2 81.3 - 96.4 fL YANCY Comment:Testing performed by : [address] [address] MCH 29.4 27.1 - 33.3 pg YANCY Comment:Testing performed by : [address] [address] MCHC 33.7 32.3 - 35.7 g/dL YANCY FAUSTIN Comment:Testing performed by : [address] [address] RDW CV 12.4 11.1 - 14.9 % YANCY FAUSTIN Comment:Testing performed by : [address], [place]., [address] RDW SD 39.4 35.7 - 48.1 fL YANCY FAUSTIN Comment:Testing performed by : [address], [place]., [address] NRBC abs 0.00 0.00 - 0.01 K/cumm YANCY FAUSTIN Comment:Testing performed by : [address] [address] Blood 09/30/2024 11:0 2 AM CDT 09/30/2024 11:19 AM CDT us Nitin Mckeon MD LAB BLOOD ORDERABLES F inal Result YANCY [facility] [place], [place] [id number] * Comprehensive metabolic panel (09/30/2024 11:02 AM CDT) Sodium 136 135 - 145 mmol/L Comment:Testing performed by : [facility] [address] [place] [address]., [address] Potassium, pl 4.3 3.3 - 4.9 mmol/L YANCY FAUSTIN Comment:Testing performed by : [address] [address] Chloride 101 97 - 110 mmol/L YANCY FAUSTIN Comment:Testing performed by : [address] [address] CO2 28 22 - 32 mmol/L YANCY FAUSTIN Comment:Testing performed by : [address] [address] Anion gap 7 2 - 15 mmol/L YANCY FAUSTIN Comment:Testing performed by : [address] [address] BUN 12 6 - 25 mg/dL YANCY Comment:Testing performed by : [address] [address] Creatinine 1.00 0.60 - 1.10 mg/dL YANCY Comment:Testing performed by : [address] [address] Glucose 83 70 - 199 mg/dL YANCY Comment: Interpretive Data Fasting glucose >/= 126 mg/dl is diagnostic for diabetes. Fasting is defined as no caloric intake for at least 8 hours. Fasting glucose between 100 mg/dl to 125 mg/dl is diagnostic of prediabetes. In a patient with classic symptoms of hyperglycemia or hyperglycemic crisis, a random glucose >/= 200 mg/dl is diagnostic for diabetes. In the absence of unequivocal hyperglycemia, results should be confirmed by repeat testing. The classification and Diagnosis of Diabetes Diabetes Care 2021; 46: S19-S40. Current interpretive data was last revised 2022. Testing performed by: [address] [address] Calcium 9.4 8.5 - 10.3 mg/dL YANCY Comment:Testing performed by : [address] [address] Bilirubin, total 0.7 0.1 - 1.2 mg/dL YANCY Comment:Testing performed by : [address] [address] Protein, pl 7.8 6.5 - 8.5 g/dL YANCY Comment:Testing performed by : [address] [address] Albumin 4.1 3.5 - 5.0 g/dL YANCY Comment:Testing performed by : [address] [address] Alk phos 99 40 - 130 Units/L YANCY Comment:Testing performed by : [address] [address] ALT 36 7 - 45 Units/L YANCY Comment:Testing performed by : [address] [address] AST 29 10 - 45 Units/L YANCY Comment:Testing performed by : [address] [address] Blood 09/30/2024 11:0 2 AM CDT 09/30/2024 11:19 AM CDT us Nitin Mckeon MD LAB BLOOD ORDERABLES F inal Result [facility] [address] [facility] [place] [address] * (ABNORMAL) Differential, auto (08/31/2024 10:10 AM CDT) Neutrophil abs 10.0(H) 1.5 - 6.5 K/cumm Comment:Testing performed by : [address] [address] Imm gran abs 0.0 0.0 - 0.1 K/cumm YANCY Comment:Testing performed by : [address] [address] Lymphocyte abs 2.9 0.8 - 3.3 K/cumm YANCY Comment:Testing performed by : [address] [address] Monocyte abs 0.7 0.2 - 0.8 K/cumm AYNCY Comment:Testing performed by : [address] [address] Eosinophil abs 0.1 0.0 - 0.5 K/cumm YANCY Comment:Testing performed by : [address] [address] Basophil abs 0.1 0.0 - 0.1 K/cumm YANCY Comment:Testing performed by : [address] [address] Neutrophil pct 72.6 % YANCY Comment: Interpretive Data Percent cell count reference ranges are not reported, since discordance with absolute values may lead to misinterpretation of CBC data. Current Interpretive Data was last revised on 2017. Testing performed by: [address] [address] Imm gran pct 0.3 % YANCY Comment: Interpretive Data Percent cell count reference ranges are not reported, since discordance with absolute values may lead to misinterpretation of CBC data. Current Interpretive Data was last revised on 2017. Testing performed by: [address] [address] Lymphocyte pct 21.4 % [facility] Comment: Interpretive Data Percent cell count reference ranges are not reported, since discordance with absolute values may lead to misinterpretation of CBC data. Current Interpretive Data was last revised on 2017. Testing performed by: [address] [address] Monocyte pct 4.9 % [facility] Comment: Interpretive Data Percent cell count reference ranges are not reported, since discordance with absolute values may lead to misinterpretation of CBC data. Current Interpretive Data was last revised on 2017. Testing performed by: [address] [address] Eosinophil pct 0.4 % [facility] Comment: Interpretive Data Percent cell count reference ranges are not reported, since discordance with absolute values may lead to misinterpretation of CBC data. Current Interpretive Data was last revised on 2017. Testing performed by: [address] [address] Basophil pct 0.4 % [facility] Comment: Interpretive Data Percent cell count reference ranges are not reported, since discordance with absolute values may lead to misinterpretation of CBC data. Current Interpretive Data was last revised on 2017. Testing performed by: [address] [address] Blood 08/31/2024 10:1 0 AM CDT 08/31/2024 10:14 AM CDT Art Jin DO LAB BLOOD ORDERABLES Final Result YANCY FAUSTIN [address] [facility] [place] [address] * (ABNORMAL) CBC with auto differential (08/31/2024 10:10 AM CDT) WBC 13.8(H) 3.8 - 9.9 K/cumm Comment:Testing performed by : [address] [address] Hgb 13.9 11.9 - 15.5 g/dL YANCY Comment:Testing performed by : [address] [address] Hct 39.8 35.6 - 45.5 % YANCY Comment:Testing performed by : [address] [address] Plt 458(H) 150 - 400 K/cumm YANCY Comment:Testing performed by : [address] [address] MPV 9.2 9.1 - 12.3 fL YANCY Comment:Testing performed by : [address] [address] RBC 4.66 3.90 - 5.20 M/cumm YANCY Comment:Testing performed by : [address] [address] MCV 85.4 81.3 - 96.4 fL YANCY Comment:Testing performed by : [address], [address] MCH 29.8 27.1 - 33.3 pg YANCY Comment:Testing performed by : [address] [address] MCHC 34.9 32.3 - 35.7 g/dL YANCY Comment:Testing performed by : [address], [address] RDW CV 12.3 11.1 - 14.9 % YANCY Comment:Testing performed by : [address] [address] RDW SD 38.1 35.7 - 48.1 fL YANCY Comment:Testing performed by : [address] [address] NRBC abs 0.00 0.00 - 0.01 K/cumm YANCY Comment:Testing performed by : [address] [address] Blood 08/31/2024 10:1 0 AM CDT 08/31/2024 10:14 AM CDT us Art Jin DO LAB BLOOD ORDERABLES Final Result YANCY [address] [facility] [place] [address] * (ABNORMAL) Urinalysis reflex to microscopic and culture Urine (08/30/2024 8:29 PM CDT) Color, ur Straw Yellow Comment:Testing performed by : [address] [address] Clarity, ur Clear Clear YANCY Comment:Testing performed by : [address] [address] Specific gravity, ur 1.004 1.003 - 1.030 YANCY Comment:Testing performed by : [address] [address] pH, urine 5.5 YANCY Comment: Interpretive Data U rine pH is affected by diet, medications, systemic acid-base disturbances, and renal tubular function. pH may affect urinary stone formation. For example, urine pH below 6.0 may help reduce the tendency for calcium phosphate stones and pH greater than 6.0 may reduce the tendency for uric acid stone formation. Source: [facility] Current Interpretive Data was last revised on 2017 Testing performed by: [address] [address] Protein, ur ql Negative Negative YANCY Comment:Testing performed by : [address] [address] Glucose, ur ql Negative Negative YANCY Comment:Testing performed by : [address] [address] Ketones, ur Negative Negative YANCY Comment:Testing performed by : [address] [address] Bilirubin, ur Negative Negative YANCY Comment:Testing performed by : [address] [address] Blood, ur Negative Negative CERNER MH Comment:Testing performed by : [facility], [address] [place] [address]., [address] Urobilinogen, ur <2.0 <2.0 mg/dL YANCY FAUSTIN Comment:Testing performed by : [address], [place]., [address] Nitrite, ur Negative Negative YANYC Comment:Testing performed by : [address] [address] Leukocyte esterase, ur 4+(A) Negative YANCY Comment:Testing performed by : [address], [place]., [address] UA reflex comment Reflex to microscopic UA will be performed. YANCY Comment:Testing performed by : [address], [place]., [address] Urine 08/30/2024 8:29 PM CDT 08/30/2024 8:33 PM CDT Tico Coe Jr., MD LAB MICROBIOLOGY - [facility] ORDERABLES Final Result [facility] [address] [facility] [place], [place] [id number] * (ABNORMAL) Drugs of Abuse Screen, Urine without Confirmation (08/30/2024 8:29 PM CDT) [facility] Amphetamine, ur Not Detected CutOff 500ng/mL Comment: Interpretive Data - Amphetamines: Samples containing greater than 500 ng/mL d-methamphetamine or other cross-reacting amphetamine compounds are reported as positive. Amphetamine immunoassays are subject to significant false positive rates due to cross-reactivity of non-amphetamine drugs. Confirmatory testing required for definitive results. Current Interpretive Data was last reviewed 2023. Testing performed by: [address] [address] Barbiturates, ur Not Detected CutOff 200ng/mL YANCY FAUSTIN Comment: Interpretive Data - Barbiturates: Samples containing greater than 200 ng/mL secobarbital or other cross-reacting barbiturate compounds are reported as positive. False positive and false negative results are possible. Confirmatory testing required for definitive results. Current Interpretive Data was last reviewed 2023. Testing performed by: [facility], [address] [place] [address]., [address] Benzodiazepines, ur Not Detected CutOff 100ng/mL [facility] Comment: Interpretive Data - Benzodiazepines: Samples containing greater than 100 ng/mL nordiazepam or other cross-reacting compounds are reported as positive. False positive and false negative results are possible. Confirmatory testing required for definitive results. Current Interpretive Data was last reviewed 2023. Testing performed by: [facility], [address] [place] [address]., [address] Cannabinoids, ur Screen Positive, presumptive (A) CutOff 50 ng/mL [facility] Comment: Interpretive Data - Cannabinoids: Samples containing greater than 50 ng/mL delta-9 THC -COOH or other cross- reacting compounds are reported as positive. False positive and false negative results are possible. Confirmatory testing required for definitive results. Current Interpretive Data was last reviewed 2023. Testing performed by: [address] [address] Cocaine, ur Not Detected CutOff 150ng/mL [facility] Comment: Interpretive Data - Cocaine: Samples containing greater than 150 ng/mL benzoylecgonine or other cross- reacting compounds are reported as positive. False positive and false negative results are possible. Confirmatory testing required for definitive results. Current Interpretive Data was last reviewed 2023. Testing performed by: [address] [address] Fentanyl, Ur Not Detected CutOff 5 ng/mL [facility] Comment: Interpretive Data - Fentanyl: Samples containing greater than 1 ng/mL fentanyl or other cross-reacting fentanyl compounds are reported as positive. False positive and false negative results are possible. Confirmatory testing required for definitive results. Current Interpretive Data was last reviewed 2023. Testing performed by: [address] [address] Methadone, ur Not Detected CutOff 300ng/mL [facility] Comment: Interpretive Data - Methadone: Samples containing greater than 300 ng/mL d,l-methadone or other cross-reacting compounds are reported as positive. False positive and false negative results are possible. Confirmatory testing required for definitive results. Current Interpretive Data was last reviewed 2023. Testing performed by: [address] [address] Opiates, ur Not Detected CutOff 300ng/mL [facility] Comment: Interpretive Data - Opiates: Samples containing greater than 300 ng/mL morphine or other cross-reacting compounds are reported as positive. False positive and false negative results are possible. Confirmatory testing required for definitive results. Current Interpretive Data was last reviewed 2023. Testing performed by: [address] [address] Oxycodone, ur Not Detected CutOff 100ng/mL [facility] Comment: Interpretive Data - Oxycodone: Samples containing greater than 100 ng/mL oxycodone or other cross-reacting compounds are reported as positive. False positive and false negative results are possible. Confirmatory testing required for definitive results. Current Interpretive Data was last reviewed 2023. Testing performed by: [address] [address] Phencyclidine, ur Not Detected CutOff 25 ng/mL [facility] Comment: Interpretive Data - Phencyclidine: Samples containing greater than 25 ng/mL phencyclidine or other cross-reacting compounds are reported as positive. False positive and false negative results are possible. Confirmatory testing required for definitive results. Current Interpretive Data was last reviewed 2023. Testing performed by: [address] [address] Urine Creatinine 39 mg/dL [facility] Comment: Interpretive Data Urine Creatinine: < 10 mg/dL is extremely dilute = or > 10 but < 20 mg/dL is dilute = or > 20 mg/dL is normal Current Interpretive Data was last revised on 2017. Testing performed by: [address] [address] Urine 08/30/2024 8:29 PM CDT 08/30/2024 8:33 PM CDT Melonie HAINES - 08/30/2024 8:54 PM CDT Drug of Abuse screening is performed by immunoassay for medical purposes only. This is not to be used for Pain Management purposes. Tico Coe Jr., MD LAB URINE ORDERABLES Fi nal Result Performing Organization Address [facility] de Phone Number [address] [address] * (ABNORMAL) Urinalysis, microscopic only (08/30/2024 8:29 PM CDT) WBC, ur 0-5 0 - 5 /HPF Comment:Testing performed by : [facility], [address] [place] [address]., [address] RBC, ur 3-5(A) 0 - 2 /HPF [facility] Comment:Testing performed by : [address] [address] Epithelial cells, squamous, ur 21-50(A) 0 - 5 /HPF [facility] Comment:Testing performed by : [address], [address] Culture Reflex Comment Reflex conditions for urine culture (WBC >10) not met. [facility] Comment:Testing performed by : [address] [address] Urine 08/30/2024 8:29 PM CDT 08/30/2024 8:33 PM CDT Tico Coe Jr., MD LAB URINE ORDERABLES Fi nal Result Performing Organization Address [facility] de Phone Number [address] [address] * POCT hCG, urine (08/30/2024 8:25 PM CDT) HCG, ur, POC Negative Negative Lot Number [id number] QC Backgroud Clear Acceptable QC Control Line Acceptable Urine 08/30/2024 8:25 PM CDT Tico Coe Jr., MD POINT OF CARE TEST ORDE RABLES Final Result * Influenza A/B, RSV, and COVID-19 PCR Nasopharyngeal (08/30/2024 8:18 PM CDT) [facility] COVID-19 RNA Negative Negative Comment:Testing performed by : [address] [address] Influenza A RNA Negative Negative [facility] Comment:Testing performed by : [address] [address] Influenza B RNA Negative Negative [facility] Comment:Testing performed by : [address] [address] RSV RNA Negative Negative [facility] Comment: Interpretive data: Testing performed by [facility]. This test is performed using the [employer]UP[employer] Xpert Xpress CoV-2/Flu/RSV plus assay. This is a multiplex, real-time reverse transcriptase PCR assay intended for the qualitative detection of nucleic acid from SARS-CoV-2, influenza A, influenza B, and respiratory syncytial virus. This assay has been cleared by the [place] Food and Drug administration. The performance characteristics have been verified by the [facility]. Results must be considered in the clinical context, and a negative result does not rule out infection. Interpretive Data last revised 2023 Testing performed by: [address] [address] Nasopharyngeal 08/30/2024 8: 18 PM CDT 08/30/2024 8:23 PM CDT Narrative [facility] 08/30/2024 9:16 PM CDT Is the Patient experiencing symptoms consistent with COVID?->Unknown us Tico Coe Jr., MD LAB MICROBIOLOGY - GENE RAL ORDERABLES Final Result [facility] [address] [facility] [place] [address] * eGFR (08/30/2024 8:18 PM CDT) [facility] eGFR 77 >=60 mL/min/1. 73 m2 Comment: Interpretive Data Reference Interval Normal >/= 90 mL/min/1.73m2 Mildly decreased* 60 - 89 mL/min/1.73m2 Mildly to moderately decreased 45 - 59 mL/min/1.73m2 Moderately to severely decreased 30 - 44 mL/min/1.73m2 Severely decreased 15 - 29 mL/min/1.73m2 Kidney Failure < 15 mL/min/1.73m2 *Relative to young adult level Estimated glomerular filtration rate is determined by the 2020 CKD-EPI equation recommended by the National Kid[employer] (A Unifying Approach to GFR Estimation: Recommendations of the NKF-ASK Task Force on Reassessing the Inclusion of Race in Diagnosing Kidney Disease, JASN 2020). The CKD-EPI equation should not be used for patients with unstable renal function and has not been validated in children and those over 70. Current interpretive data was last reviewed 2021. Testing performed by: [address] [address] Blood 08/30/2024 8:18 PM CDT 08/30/2024 8:24 PM CDT Tico Coe Jr., MD LAB BLOOD ORDERABLES Fi nal Result [facility] [address] [facility] of [facility] [place], [place] [id number] * (ABNORMAL) Differential, auto (08/30/2024 8:18 PM CDT) Neutrophil abs 13.2(H) 1.5 - 6.5 K/cumm Comment:Testing performed by : [address] [address] Imm gran abs 0.1 0.0 - 0.1 K/cumm [facility] Comment:Testing performed by : [address] [address] Lymphocyte abs 2.8 0.8 - 3.3 K/cumm [facility] Comment:Testing performed by : [address] [address] Monocyte abs 1.0(H) 0.2 - 0.8 K/cumm [facility] Comment:Testing performed by : [address] [address] Eosinophil abs 0.0 0.0 - 0.5 K/cumm [facility] Comment:Testing performed by : [address] [address] Basophil abs 0.1 0.0 - 0.1 K/cumm [facility] Comment:Testing performed by : [address] [address] Neutrophil pct 77.2 % [facility] Comment: Interpretive Data Percent cell count reference ranges are not reported, since discordance with absolute values may lead to misinterpretation of CBC data. Current Interpretive Data was last revised on 2017. Testing performed by: [address] [address] Imm gran pct 0.4 % [facility] Comment: Interpretive Data Percent cell count reference ranges are not reported, since discordance with absolute values may lead to misinterpretation of CBC data. Current Interpretive Data was last revised on 2017. Testing performed by: [address] [address] Lymphocyte pct 16.1 % [facility] Comment: Interpretive Data Percent cell count reference ranges are not reported, since discordance with absolute values may lead to misinterpretation of CBC data. Current Interpretive Data was last revised on 2017. Testing performed by: [address] [address] Monocyte pct 5.7 % [facility] Comment: Interpretive Data Percent cell count reference ranges are not reported, since discordance with absolute values may lead to misinterpretation of CBC data. Current Interpretive Data was last revised on 2017. Testing performed by: [address] [address] Eosinophil pct 0.2 % [facility] Comment: Interpretive Data Percent cell count reference ranges are not reported, since discordance with absolute values may lead to misinterpretation of CBC data. Current Interpretive Data was last revised on 2017. Testing performed by: [address] [address] Basophil pct 0.4 % [facility] Comment: Interpretive Data Percent cell count reference ranges are not reported, since discordance with absolute values may lead to misinterpretation of CBC data. Current Interpretive Data was last revised on 2017. Testing performed by: [address] [address] Blood 08/30/2024 8:18 PM CDT 08/30/2024 8:24 PM CDT Tico Coe Jr., MD LAB BLOOD ORDERABLES Fi nal Result Performing Organization Address [facility] de Phone Number [address] [place] [address] * Thyroid Function Wells (08/30/2024 8:18 PM CDT) TSH 0.97 0.30 - 4.20 mcIUnit/mL Comment:Testing performed by : [address] [address] Blood 08/30/2024 8:18 PM CDT 08/30/2024 8:24 PM CDT us Tico Coe Jr., MD LAB BLOOD ORDERABLES Fi nal Result Performing Organization Address [facility] de Phone Number [address] [address] * (ABNORMAL) CBC with auto differential (08/30/2024 8:18 PM CDT) WBC 17.1(H) 3.8 - 9.9 K/cumm Comment:Testing performed by : [address] [address] Hgb 13.5 11.9 - 15.5 g/dL [facility] Comment:Testing performed by : [address] [address] Hct 39.4 35.6 - 45.5 % [facility] Comment:Testing performed by : [address] [address] Plt 485(H) 150 - 400 K/cumm [facility] Comment:Testing performed by : [address] [address] MPV 9.0(L) 9.1 - 12.3 fL [facility] FAUSTIN Comment:Testing performed by : [address] [address] RBC 4.65 3.90 - 5.20 M/cumm [facility] FAUSTIN Comment:Testing performed by : [address] [address] MCV 84.7 81.3 - 96.4 fL [facility] Comment:Testing performed by : [address] [address] MCH 29.0 27.1 - 33.3 pg [facility] Comment:Testing performed by : [address] [address] MCHC 34.3 32.3 - 35.7 g/dL [facility] Comment:Testing performed by : [address], [address] RDW CV 12.4 11.1 - 14.9 % [facility] Comment:Testing performed by : [address], [address] RDW SD 37.6 35.7 - 48.1 fL [facility] Comment:Testing performed by : [address] [address] NRBC abs 0.00 0.00 - 0.01 K/cumm [facility] Comment:Testing performed by : [address] [address] Blood Venous blood specimen / Unknown 08/30/2024 8:18 PM CDT 08/30/2024 8:24 PM CDT us Tico Coe Jr., MD LAB BLOOD ORDERABLES Fi nal Result [facility] [address] [facility] [place] [address] * Ethanol (08/30/2024 8:18 PM CDT) Ethanol <10 <=10 mg/dL Comment: Interpretive Data Legal limit of intoxication > or = 80 mg/dL Levels > or = 400 mg/dL are potentially TOXIC. Current interpretive data was last revised on 2018. Testing performed by: [address] [address] Blood 08/30/2024 8:18 PM CDT 08/30/2024 8:24 PM CDT Tico Coe Jr., MD LAB BLOOD ORDERABLES Fi nal Result Performing Organization Address [facility] de Phone Number [address] [place] [address] * Acetaminophen level (08/30/2024 8:18 PM CDT) Acetaminophen <5 <=5 mcg/mL Comment: Interpretive Data Significant hepatic injury may occur and treatment with n-acetyl cysteine is generally recommended if the acetaminophen level exceeds: 150 mcg/mL at 4 hours after ingestion 75 mcg/mL at 8 hours after ingestion 38 mcg/mL at 12 hours after ingestion 19 mcg/mL at 16 hours after ingestion Consult toxicology or poison control ([phone]) for unknown ingestion time. Current interpretive data was last revised 2023. Testing performed by: [address] [address] Blood 08/30/2024 8:18 PM CDT 08/30/2024 8:24 PM CDT Tico Coe Jr., MD LAB BLOOD ORDERABLES Fi nal Result Performing Organization Address [facility] de Phone Number [place] [id number] [facility] [place] [address] * Salicylate level (08/30/2024 8:18 PM CDT) Salicylate <1.0 <=1.0 mg/dL Comment: Interpretive Data Toxic: 30 mg/dL or greater. Current interpretive data was last revised 2023. Testing performed by: [address] [address] Blood 08/30/2024 8:18 PM CDT 08/30/2024 8:24 PM CDT us Tico Coe Jr., MD LAB BLOOD ORDERABLES Fi nal Result [facility] [address] [facility] [place] [address] * Comprehensive metabolic panel (08/30/2024 8:18 PM CDT) Sodium 137 135 - 145 mmol/L Comment:Testing performed by : [address] [address] Potassium, pl 3.9 3.3 - 4.9 mmol/L [facility] Comment:Testing performed by : [address] [address] Chloride 98 97 - 110 mmol/L [facility] Comment:Testing performed by : [address] [address] CO2 26 22 - 32 mmol/L [facility] Comment:Testing performed by : [address] [address] Anion gap 13 2 - 15 mmol/L [facility] Comment:Testing performed by : [address] [address] BUN 10 6 - 25 mg/dL [facility] Comment:Testing performed by : [address] [address] Creatinine 1.00 0.60 - 1.10 mg/dL [facility] Comment:Testing performed by : [address] [address] Glucose 119 70 - 199 mg/dL [facility] Comment: Interpretive Data Fasting glucose >/= 126 mg/dl is diagnostic for diabetes. Fasting is defined as no caloric intake for at least 8 hours. Fasting glucose between 100 mg/dl to 125 mg/dl is diagnostic of prediabetes. In a patient with classic symptoms of hyperglycemia or hyperglycemic crisis, a random glucose >/= 200 mg/dl is diagnostic for diabetes. In the absence of unequivocal hyperglycemia, results should be confirmed by repeat testing. The classification and Diagnosis of Diabetes Diabetes Care 2021; 46: S19-S40. Current interpretive data was last revised 2022. Testing performed by: [address] [address] Calcium 9.9 8.5 - 10.3 mg/dL [facility] Comment:Testing performed by : [address] [address] Bilirubin, total 0.5 0.1 - 1.2 mg/dL [facility] Comment:Testing performed by : [address] [address] Protein, pl 8.4 6.5 - 8.5 g/dL [facility] Comment:Testing performed by : [address] [address] Albumin 4.8 3.5 - 5.0 g/dL [facility] Comment:Testing performed by : [address] [address] Alk phos 78 40 - 130 Units/L [facility] Comment:Testing performed by : [address] [address] ALT 36 7 - 45 Units/L [facility] Comment:Testing performed by : [address] [address] AST 29 10 - 45 Units/L [facility] Comment:Testing performed by : [address] [address] Blood 08/30/2024 8:18 PM CDT 08/30/2024 8:24 PM CDT us Tico Coe Jr., MD LAB BLOOD ORDERABLES Fi nal Result [facility] [address] [facility] [place] [address] from Last 3 Months Insurance [employer] Care Teams Log Loader Relationship Specialty Start Date End Date Sahara Rapp NP [address] [place] [address] PCP - General Nurse Practitioner 09/30/24
--- OUTSIDE RECORDS SUMMARY | 2024-11-24 10:56 | XMS_ITS | Clinical Summary ---
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 Phone Sahara Rapp KITCHEN HAND Primary Care Provider Allergies No known active allergies Medications hydrocortisone (ANUSOL-HC) 25 mg suppository Insert 1 suppository (25 mg total) into the rectum 2 (two) times a day 12 suppository 10/01/19 Active Active Problems Problem Noted Date Diagnosed Date Anxiety 10/23/2016 Encounters Date Type Department Care Team Description 09/30/2024 11:50 AM CDT - 09/30/2024 12:55 PM [facility] Emergency Department [address] [place] [address] Cystitis (Primary Dx); Leukocytosis, unspecified type Discharge Disposition: Discharge to home or self care 08/30/2024 8:20 PM CDT - 08/31/2024 5:39 PM T Emergency [facility] Emergency Department [address] [place] [id number] Tico Coe Jr., MD Abbeg, Andrew Paul, Suicidal ideation (Primary Dx) Discharge Disposition: Discharge to a short term hospital for IP from Last 3 Months Immunizations Immunization Administration Dates Next Due Tdap [...] on file Legal Sex Female 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 Gender Identity Not on file Sexual Orientation Not on file Obstetrics History Last Filed Vital Signs Vital Sign Reading [...] 09/30/2024 10:53 AM CDT Plan of Treatment Health Maintenance Due Date Last Done Comments Cervical Cancer Screening 1993 Depression Screening 1993 Hepatitis C Screening 1993 Varicella Vaccines (1 of 2 - 13+ 2-dose series) 2006 Hepatitis B Screening 2011 Regular Well Visit/Exam 18-64 2011 Covid-19 Vaccine (3 - 2023-2 5 season) 2024 03/14/2021, 02/14/2021 Influenza Vaccine (Season Ended) 2025 DTaP/Tdap/Td Vaccine (2 - Td or Tdap) 05/22/2026 05/22/2016 HPV Vaccines Aged Out No longer eligi ble based on patient's age to complete this topic Pneumococcal vaccine <65 Aged Out No longer eligible based on patient's age to complete this topic Procedures Procedure Name Priority Date/Time Associated Diagnosis [...] ur Lucy Yellow Comment:Testing performed by : [address] [address] Clarity, ur Turbid(A) Clear YANCY Comment:Testing performed by : [address] [address] Specific gravity, ur 1.020 1.003 - 1.030 YANCY Comment:Testing performed by : [address] [address] pH, urine 6.0 YANCY Comment: Interpretive Data U rine pH is affected by diet, medications, systemic acid-base disturbances, and renal tubular function. pH may affect urinary stone formation. For example, urine pH below 6.0 may help reduce the tendency for calcium phosphate stones and pH greater than 6.0 may reduce the tendency for uric acid stone formation. Source: [facility] Current Interpretive Data was last revised on 2017 Testing performed by: [address] [address] Protein, ur ql 2+(A) Negative YANCY Comment:Testing performed by : [address] [address] Glucose, ur ql Negative Negative YANCY Comment:Testing performed by : [address] [address] Ketones, ur Negative Negative YANCY Comment:Testing performed by : [address] [address] Bilirubin, ur Negative Negative YANCY Comment:Testing performed by : [address] [address] Blood, ur 3+(A) Negative YANCY Comment:Testing performed by : [facility] [address] [place] [address], [place]., [address] Urobilinogen, ur 2.0(A) <2.0 mg/dL YANCY Comment:Testing performed by : [facility] [address] [place] [address], [place]., [address] Nitrite, ur Positive(A) Negative YANCY Comment:Testing performed by : [address], [place]., [address] Leukocyte esterase, ur 4+(A) Negative YANCY Comment:Testing performed by : [facility] [address] [place] [address], [place]., [address] UA reflex comment Reflex to microscopic UA will be performed. YANCY Comment:Testing performed by : [facility] [address] [place] [address], [place]., [address] Urine 09/30/2024 11:1 1 AM CDT 09/30/2024 11:19 AM CDT us Nitin Mckeon MD LAB MICROBIOLOGY - GEN ERAL ORDERABLES Final Result [facility] Department [place] [address] * (ABNORMAL) Urinalysis, microscopic only (09/30/2024 11:11 AM CDT) WBC, ur >50(A) 0 - 5 /HPF Comment:Testing performed by : [facility] [address] [place] [address]., [address] RBC, ur >50(A) 0 - 2 /HPF YANCY Comment:Testing performed by : [address] [address] Epithelial cells, squamous, ur >50(A) 0 - 5 /HPF YANCY Comment:Testing performed by : [facility] [address] [place] [address], [place]., [address] Bacteria, ur 4+(A) YANCY Comment:Testing performed by : [address], [place]., [address] Culture Reflex Comment Reflex to urine culture will be performed. YANCY Comment:Testing performed by : [facility], [address] [place] [address]., [address] Urine 09/30/2024 11:1 1 AM CDT 09/30/2024 11:19 AM CDT Nitin Mckeon MD LAB URINE ORDERABLES F inal Result Performing Organization Address City/[facility]/ZIP Co de Phone Number YANCY [facility] [place] [address] * (ABNORMAL) Urine culture Urine (09/30/2024 11:11 AM CDT) Report Final Report: Greater than or equal to 100,000 colonies/mL of Escherichia coli (.) Comment:Testing performed by : [facility], [address] [facility] [place] [address] Organism ESCHERICHIA COLI YANCY Urine 09/30/2024 11:1 1 AM CDT 09/30/2024 1:48 PM CDT Narrative YANCY - 10/02/2024 10:37 AM CDT Urine culture reflexed based upon urinalysis results. Testing performed by [facility] Microbiology Laboratory ([phone]) Organism Antibiotic Method Susceptibility Escherichia coli Ampicillin [...] INTERPRETATION Susceptible Escherichia coli Cefdinir INTERPRETATION Susceptible Nitin Mckeon MD LAB MICROBIOLOGY - GEN ERAL ORDERABLES Final Result YANCY [address] [facility] [place] [address] * POCT hCG, urine (09/30/2024 11:05 AM CDT) Pathologist [facility] HCG, ur, POC Negative Negative Lot Number [id number] QC Backgroud Clear Acceptable QC Control Line Acceptable Urine 09/30/2024 11:0 5 AM CDT [facility] TEST ORDERABLES F inal Result * eGFR (09/30/2024 11:02 AM CDT) [facility] eGFR 77 >=60 mL/min/1. 73 m2 [...] was last reviewed 2021. Testing performed by: [facility], [address] [place] [address], [place]., [address] Blood 09/30/2024 11:0 2 AM CDT 09/30/2024 11:19 AM CDT Nitin Mckeon MD LAB BLOOD ORDERABLES F inal Result YANCY [address] [facility] Department [place] [address] * (ABNORMAL) Differential, auto (09/30/2024 11:02 AM CDT) [facility] Neutrophil abs 9.39(H) 1.50 - 6.50 K/cumm Comment:Testing performed by : [address], [place]., [address] Imm gran abs 0.05 0.00 - 0.10 K/cumm [facility] Comment:Testing performed by : [address], [place]., [address] Lymphocyte abs 3.40(H) 0.80 - 3.30 K/cumm [facility] Comment:Testing performed by : [address], [place]., [address] Monocyte abs 0.96(H) 0.20 - 0.80 K/cumm [facility] Comment:Testing performed by : [address], [place]., [address] Eosinophil abs 0.06 0.00 - 0.50 K/cumm [facility] Comment:Testing performed by : [address] [address] Basophil abs 0.04 0.00 - 0.10 K/cumm [facility] Comment:Testing performed by : [address] [address] Neutrophil pct 67.5 % [facility] Comment: Interpretive Data Percent cell count reference ranges are not reported, since discordance with absolute values may lead to misinterpretation of CBC data. Current Interpretive Data was last revised on 2017. Testing performed by: [address] [address] Imm gran pct 0.4 % [facility] Comment: Interpretive Data Percent cell count reference ranges are not reported, since discordance with absolute values may lead to misinterpretation of CBC data. Current Interpretive Data was last revised on 2017. Testing performed by: [address] [address] Lymphocyte pct 24.5 % [facility] Comment: Interpretive Data Percent cell count reference ranges are not reported, since discordance with absolute values may lead to misinterpretation of CBC data. Current Interpretive Data was last revised on 2017. Testing performed by: [address] [address] Monocyte pct 6.9 % [facility] Comment: Interpretive Data Percent cell count reference ranges are not reported, since discordance with absolute values may lead to misinterpretation of CBC data. Current Interpretive Data was last revised on 2017. Testing performed by: [address] [address] Eosinophil pct 0.4 % YANCY Comment: Interpretive Data Percent cell count reference ranges are not reported, since discordance with absolute values may lead to misinterpretation of CBC data. Current Interpretive Data was last revised on 2017. Testing performed by: [address] [address] Basophil pct 0.3 % YANCY Comment: Interpretive Data Percent cell count reference ranges are not reported, since discordance with absolute values may lead to misinterpretation of CBC data. Current Interpretive Data was last revised on 2017. Testing performed by: [address] [address] Blood 09/30/2024 11:0 2 AM CDT 09/30/2024 11:19 AM CDT us Nitin Mckeon MD LAB BLOOD ORDERABLES F inal Result [facility] [address] [facility] Department [place] [address] * (ABNORMAL) CBC with auto differential (09/30/2024 11:02 AM CDT) WBC 13.90(H) 3.80 - 9.90 K/cumm Comment:Testing performed by : [address] [address] Hgb 11.3(L) 11.9 - 15.5 g/dL YANCY Comment:Testing performed by : [address] [address] Hct 33.5(L) 35.6 - 45.5 % YANCY Comment:Testing performed by : [address] [address] Plt 443(H) 150 - 400 K/cumm YANCY Comment:Testing performed by : [address] [address] MPV 9.0(L) 9.1 - 12.3 fL YANCY [facility] Comment:Testing performed by : [address], [address] RBC 3.84(L) 3.90 - 5.20 M/cumm YANCY [facility] Comment:Testing performed by : [address], [address] MCV 87.2 81.3 - 96.4 fL YANCY Comment:Testing performed by : [address], [address] MCH 29.4 27.1 - 33.3 pg YANCY [facility] Comment:Testing performed by : [address], [address] MCHC 33.7 32.3 - 35.7 g/dL YANCY Comment:Testing performed by : [address], [address] RDW CV 12.4 11.1 - 14.9 % YANCY Comment:Testing performed by : [address], [address] RDW SD 39.4 35.7 - 48.1 fL YANCY Comment:Testing performed by : [address], [address] NRBC abs 0.00 0.00 - 0.01 K/cumm YANCY Comment:Testing performed by : [address], [address] Blood 09/30/2024 11:0 2 AM CDT 09/30/2024 11:19 AM CDT us Nitin Mckeon MD LAB BLOOD ORDERABLES F inal Result YANCY [address] [facility] Department of Laboratories [place], [place] [id number] * Comprehensive metabolic panel (09/30/2024 11:02 AM CDT) [facility] Signature Sodium 136 135 - 145 mmol/L Comment:Testing performed by : [address] [address] Potassium, pl 4.3 3.3 - 4.9 mmol/L [facility] Comment:Testing performed by : [address] [address] Chloride 101 97 - 110 mmol/L [facility] Comment:Testing performed by : [address], [place]., [address] CO2 28 22 - 32 mmol/L [facility] Comment:Testing performed by : [address], [place]., [address] Anion gap 7 2 - 15 mmol/L [facility] Comment:Testing performed by : [address] [address] BUN 12 6 - 25 mg/dL [facility] Comment:Testing performed by : [address], [place]., [address] Creatinine 1.00 0.60 - 1.10 mg/dL [facility] Comment:Testing performed by : [address] [address] Glucose 83 70 - 199 mg/dL [facility] Comment: Interpretive Data Fasting glucose >/= 126 [...] classification and Diagnosis of Diabetes Diabetes Care 202; 46: S19-S40. Current interpretive data was last revised 2022. Testing performed by: [address] [address] Calcium 9.4 8.5 - 10.3 mg/dL [facility] Comment:Testing performed by : [address] [address] Bilirubin, total 0.7 0.1 - 1.2 mg/dL [facility] Comment:Testing performed by : [address] [address] Protein, pl 7.8 6.5 - 8.5 g/dL YANCY Comment:Testing performed by : [address] [address] Albumin 4.1 3.5 - 5.0 g/dL YANCY Comment:Testing performed by : [address] [address] Alk phos 99 40 - 130 Units/L YANCY Comment:Testing performed by : [address] [address] ALT 36 7 - 45 Units/L YANCY Comment:Testing performed by : [address] [address] AST 29 10 - 45 Units/L YANCY Comment:Testing performed by : [address] [address] Blood 09/30/2024 11:0 2 AM CDT 09/30/2024 11:19 AM CDT us Nitin Mckeon MD LAB BLOOD ORDERABLES F inal Result [place] [id number] [facility] Department of Laboratories [place], [place] [id number] * (ABNORMAL) Differential, auto (08/31/2024 10:10 AM CDT) Pathologist [facility] Neutrophil abs 10.0(H) 1.5 - 6.5 K/cumm Comment:Testing performed by : [address] [address] Imm gran abs 0.0 0.0 - 0.1 K/cumm YANCY Comment:Testing performed by : [address] [address] Lymphocyte abs 2.9 0.8 - 3.3 K/cumm YANCY Comment:Testing performed by : [address] [address] Monocyte abs 0.7 0.2 - 0.8 K/cumm YANCY Comment:Testing performed by : [address] [address] Eosinophil abs 0.1 0.0 - 0.5 K/cumm [facility] Comment:Testing performed by : [address] [address] Basophil abs 0.1 0.0 - 0.1 K/cumm [facility] Comment:Testing performed by : [address] [address] Neutrophil pct 72.6 % [facility] Comment: Interpretive Data Percent cell count reference ranges are not reported, since discordance with absolute values may lead to misinterpretation of CBC data. Current Interpretive Data was last revised on 2017. Testing performed by: [address] [address] Imm gran pct 0.3 % [facility] Comment: Interpretive Data Percent cell count reference ranges are not reported, since discordance with absolute values may lead to misinterpretation of CBC data. Current Interpretive Data was last revised on 2017. Testing performed by: [address] [address] Lymphocyte pct 21.4 % [facility] Comment: Interpretive Data Percent cell count reference ranges are not reported, since discordance with absolute values may lead to misinterpretation of CBC data. Current Interpretive Data was last revised on 2017. Testing performed by: [address] [address] Monocyte pct 4.9 % [facility] Comment: Interpretive Data Percent cell count reference ranges are not reported, since discordance with absolute values may lead to misinterpretation of CBC data. Current Interpretive Data was last revised on 2017. Testing performed by: [address] [address] Eosinophil pct 0.4 % [facility] Comment: Interpretive Data Percent cell count reference ranges are not reported, since discordance with absolute values may lead to misinterpretation of CBC data. Current Interpretive Data was last revised on 2017. Testing performed by: [address] [address] Basophil pct 0.4 % [facility] Comment: Interpretive Data Percent cell count reference ranges are not reported, since discordance with absolute values may lead to misinterpretation of CBC data. Current Interpretive Data was last revised on 2017. Testing performed by: [address] [address] Blood 08/31/2024 10:1 0 AM CDT 08/31/2024 10:14 AM CDT Art Jin DO LAB BLOOD ORDERABLES Final Result [facility] [address] [facility] Department [place] [address] * (ABNORMAL) CBC with auto differential (08/31/2024 10:10 AM CDT) WBC 13.8(H) 3.8 - 9.9 K/cumm Comment:Testing performed by : [address] [address] Hgb 13.9 11.9 - 15.5 g/dL YANCY Comment:Testing performed by : [address] [address] Hct 39.8 35.6 - 45.5 % YANCY Comment:Testing performed by : [address] [address] Plt 458(H) 150 - 400 K/cumm YANCY Comment:Testing performed by : [address] [address] MPV 9.2 9.1 - 12.3 fL YANCY Comment:Testing performed by : [address] [address] RBC 4.66 3.90 - 5.20 M/cumm Y[facility]Y Comment:Testing performed by : [address] [address] MCV 85.4 81.3 - 96.4 fL YANCY Comment:Testing performed by : [address] [address] MCH 29.8 27.1 - 33.3 pg YANCY Comment:Testing performed by : [address] [address] MCHC 34.9 32.3 - 35.7 g/dL [facility] Comment:Testing performed by : [address] [address] RDW CV 12.3 11.1 - 14.9 % [facility] Comment:Testing performed by : [address] [address] RDW SD 38.1 35.7 - 48.1 fL [facility] Comment:Testing performed by : [address] [address] NRBC abs 0.00 0.00 - 0.01 K/cumm [facility] Comment:Testing performed by : [address] [address] Blood 08/31/2024 10:1 0 AM CDT 08/31/2024 10:14 AM CDT Art Jin DO LAB BLOOD ORDERABLES Final Result YANCY [address] [facility] Department of Laboratories [place], [place] [id number] * (ABNORMAL) Urinalysis reflex to microscopic and culture Urine (08/30/2024 8:29 PM CDT) Color, ur Straw Yellow Comment:Testing performed by : [address] [address] Clarity, ur Clear Clear YANCY Comment:Testing performed by : [address] [address] Specific gravity, ur 1.004 1.003 - 1.030 YANCY Comment:Testing performed by : [address] [address] pH, urine 5.5 YANCY Comment: Interpretive Data U rine pH is affected by diet, medications, systemic acid-base disturbances, and renal tubular function. pH may affect urinary stone formation. For example, urine pH below 6.0 may help reduce the tendency for calcium phosphate stones and pH greater than 6.0 may reduce the tendency for uric acid stone formation. Source: [facility] Current Interpretive Data was last revised on 2017 Testing performed by: [facility], [address] [place] [address], [place]., [address] Protein, ur ql Negative Negative YANCY Comment:Testing performed by : [facility], [address] [place] [address], [place]., [address] Glucose, ur ql Negative Negative YANCY Comment:Testing performed by : [address], [place]., [address] Ketones, ur Negative Negative YANCY Comment:Testing performed by : [address], [place]., [address] Bilirubin, ur Negative Negative YANCY Comment:Testing performed by : [address], [place]., [address] Blood, ur Negative Negative YANCY Comment:Testing performed by : [address], [place]., [address] Urobilinogen, ur <2.0 <2.0 mg/dL YANCY Comment:Testing performed by : [address], [place]., [address] Nitrite, ur Negative Negative YANCY Comment:Testing performed by : [address], [place]., [address] Leukocyte esterase, ur 4+(A) Negative YANCY Comment:Testing performed by : [address], [place]., [address] UA reflex comment Reflex to microscopic UA will be performed. YANCY Comment:Testing performed by : [address] [address] Urine 08/30/2024 8:29 PM CDT 08/30/2024 8:33 PM CDT us Tico Coe Jr., MD LAB MICROBIOLOGY - [facility] ORDERABLES Final Result Y[facility]Y [facility] [address] [facility] Department [place] [address] * (ABNORMAL) Drugs of Abuse Screen, Urine without Confirmation (08/30/2024 8:29 PM CDT) [facility] Amphetamine, ur Not Detected CutOff 500ng/mL Comment: Interpretive Data - Amphetamines: Samples containing greater than 500 ng/mL d-methamphetamine or other cross-reacting amphetamine compounds are reported as positive. Amphetamine immunoassays are subject to significant false positive rates due to cross-reactivity of non-amphetamine drugs. Confirmatory testing required for definitive results. Current Interpretive Data was last reviewed 2023. Testing performed by: [address] [address] Barbiturates, ur Not Detected CutOff 200ng/mL [facility] Comment: Interpretive Data - Barbiturates: Samples containing greater than 200 ng/mL secobarbital or other cross-reacting barbiturate compounds are reported as positive. False positive and false negative results are possible. Confirmatory testing required for definitive results. Current Interpretive Data was last reviewed 2023. Testing performed by: [address] [address] Benzodiazepines, ur Not Detected CutOff 100ng/mL [facility] Comment: Interpretive Data - Benzodiazepines: Samples containing greater than 100 ng/mL nordiazepam or other cross-reacting compounds are reported as positive. False positive and false negative results are possible. Confirmatory testing required for definitive results. Current Interpretive Data was last reviewed 2023. Testing performed by: [address] [address] Cannabinoids, ur Screen Positive, presumptive (A) CutOff 50 ng/mL [facility] Comment: Interpretive Data - Cannabinoids: Samples containing greater than 50 ng/mL delta-9 THC -COOH or other cross- reacting compounds are reported as positive. False positive and false negative results are possible. Confirmatory testing required for definitive results. Current Interpretive Data was last reviewed 2023. Testing performed by: [address] [address] Cocaine, ur Not Detected CutOff 150ng/mL [facility] Comment: Interpretive Data - Cocaine: Samples containing greater than 150 ng/mL benzoylecgonine or other cross- reacting compounds are reported as positive. False positive and false negative results are possible. Confirmatory testing required for definitive results. Current Interpretive Data was last reviewed 2023. Testing performed by: [address] [address] Fentanyl, Ur Not Detected CutOff 5 ng/mL [facility] Comment: Interpretive Data - Fentanyl: Samples containing greater than 1 ng/mL fentanyl or other cross-reacting fentanyl compounds are reported as positive. False positive and false negative results are possible. Confirmatory testing required for definitive results. Current Interpretive Data was last reviewed 2023. Testing performed by: [address] [address] Methadone, ur Not Detected CutOff 300ng/mL [facility] Comment: Interpretive Data - Methadone: Samples containing greater than 300 ng/mL d,l-methadone or other cross-reacting compounds are reported as positive. False positive and false negative results are possible. Confirmatory testing required for definitive results. Current Interpretive Data was last reviewed 2023. Testing performed by: [address] [address] Opiates, ur Not Detected CutOff 300ng/mL [facility] Comment: Interpretive Data - Opiates: Samples containing greater than 300 ng/mL morphine or other cross-reacting compounds are reported as positive. False positive and false negative results are possible. Confirmatory testing required for definitive results. Current Interpretive Data was last reviewed 2023. Testing performed by: [address] [address] Oxycodone, ur Not Detected CutOff 100ng/mL [facility] Comment: Interpretive Data - Oxycodone: Samples containing greater than 100 ng/mL oxycodone or other cross-reacting compounds are reported as positive. False positive and false negative results are possible. Confirmatory testing required for definitive results. Current Interpretive Data was last reviewed 2023. Testing performed by: [address] [address] Phencyclidine, ur Not Detected CutOff 25 ng/mL [facility] Comment: Interpretive Data - Phencyclidine: Samples containing greater than 25 ng/mL phencyclidine or other cross-reacting compounds are reported as positive. False positive and false negative results are possible. Confirmatory testing required for definitive results. Current Interpretive Data was last reviewed 2023. Testing performed by: [address] [address] Urine Creatinine 39 mg/dL YANCY Comment: Interpretive Data Urine Creatinine: < 10 mg/dL is extremely dilute = or > 10 but < 20 mg/dL is dilute = or > 20 mg/dL is normal Current Interpretive Data was last revised on 2017. Testing performed by: [address] [address] Urine 08/30/2024 8:29 PM CDT 08/30/2024 8:33 PM CDT Narrative YANCY - 08/30/2024 8:54 PM CDT Drug of Abuse screening is performed by immunoassay for medical purposes only. This is not to be used for Pain Management purposes. us Tico Coe Jr., MD LAB URINE ORDERABLES nal Result YANCY [address] [facility] Department of Laboratories [place], [place] [id number] * (ABNORMAL) Urinalysis, microscopic only (08/30/2024 8:29 PM CDT) WBC, ur 0-5 0 - 5 /HPF Comment:Testing performed by : [address] [address] RBC, ur 3-5(A) 0 - 2 /HPF YANCY Comment:Testing performed by : [address] [address] Epithelial cells, squamous, ur 21-50(A) 0 - 5 /HPF YANCY Comment:Testing performed by : [address] [address] Culture Reflex Comment Reflex conditions for urine culture (WBC >10) not met. YANCY Comment:Testing performed by : [address] [address] Urine 08/30/2024 8:29 PM CDT 08/30/2024 8:33 PM CDT us Tico Coe Jr., MD LAB URINE ORDERABLES Fi nal Result YANCY [address] [facility] Department [place] [address] * POCT hCG, urine (08/30/2024 8:25 PM CDT) HCG, ur, POC Negative Negative Lot Number [id number] QC Backgroud Clear Acceptable QC Control Line Acceptable Urine 08/30/2024 8:25 PM CDT us Tioc Coe Jr., MD POINT OF CARE TEST ORDE RABLES Final Result * Influenza A/B, RSV, and COVID-19 PCR Nasopharyngeal (08/30/2024 8:18 PM CDT) [facility] COVID-19 RNA Negative Negative Comment:Testing performed by : [address] [address] Influenza A RNA Negative Negative [facility] Comment:Testing performed by : [address] [address] Influenza B RNA Negative Negative [facility] Comment:Testing performed by : [address] [address] RSV RNA Negative Negative [facility] Comment: Interpretive data: Testing performed by [facility]. This test is performed using the [employer] Xpert Xpress CoV-2/Flu/RSV plus assay. This is a multiplex, real-time reverse transcriptase PCR assay intended for the qualitative detection of nucleic acid from SARS-CoV-2, influenza A, influenza B, and respiratory syncytial virus. This assay has been cleared by the [place] Food and Drug administration. The performance characteristics have been verified by the [facility]. Results must be considered in the clinical context, and a negative result does not rule out infection. Interpretive Data last revised 2023 Testing performed by: [address] [address] Nasopharyngeal 08/30/2024 8: 18 PM CDT 08/30/2024 8:23 PM CDT Narrative [facility] - 08/30/2024 9:16 PM CDT Is the Patient experiencing symptoms consistent with COVID?->Unknown Tico Coe Jr., MD LAB MICROBIOLOGY - GENE RAL ORDERABLES Final Result Performing Organization Address [facility] Co de Phone Number YANCY [address] [place] [address] * eGFR (08/30/2024 8:18 PM CDT) Pathologist [facility] eGFR 77 >=60 mL/min/1. 73 m2 Comment: [...] was last reviewed 2021. Testing performed by: [facility], [address] [place] [address]., [address] Blood 08/30/2024 8:18 PM CDT 08/30/2024 8:24 PM CDT Tico Coe Jr., MD LAB BLOOD ORDERABLES Fi nal Result Performing Organization Address [facility]/ZIP Co de Phone Number [address] Department [place] [address] * (ABNORMAL) Differential, auto (08/30/2024 8:18 PM CDT) Pathologist [facility] Neutrophil abs 13.2(H) 1.5 - 6.5 K/cumm Comment:Testing performed by : [facility], [address] [place] [address], [place]., [address] Imm gran abs 0.1 0.0 - 0.1 K/cumm [facility] Comment:Testing performed by : [address], [place]., [address] Lymphocyte abs 2.8 0.8 - 3.3 K/cumm [facility] Comment:Testing performed by : [address], [place]., [address] Monocyte abs 1.0(H) 0.2 - 0.8 K/cumm [facility] Comment:Testing performed by : [address], [place]., [address] Eosinophil abs 0.0 0.0 - 0.5 K/cumm [facility] Comment:Testing performed by : [address] [address] Basophil abs 0.1 0.0 - 0.1 K/cumm [facility] Comment:Testing performed by : [address] [address] Neutrophil pct 77.2 % [facility] Comment: Interpretive Data Percent cell count reference ranges are not reported, since discordance with absolute values may lead to misinterpretation of CBC data. Current Interpretive Data was last revised on 2017. Testing performed by: [address] [address] Imm gran pct 0.4 % C[facility] Comment: Interpretive Data Percent cell count reference ranges are not reported, since discordance with absolute values may lead to misinterpretation of CBC data. Current Interpretive Data was last revised on 2017. Testing performed by: [address] [address] Lymphocyte pct 16.1 % [facility] Comment: Interpretive Data Percent cell count reference ranges are not reported, since discordance with absolute values may lead to misinterpretation of CBC data. Current Interpretive Data was last revised on 2017. Testing performed by: [address] [address] Monocyte pct 5.7 % [facility] Comment: Interpretive Data Percent cell count reference ranges are not reported, since discordance with absolute values may lead to misinterpretation of CBC data. Current Interpretive Data was last revised on 2017. Testing performed by: [address] [address] Eosinophil pct 0.2 % [facility] Comment: Interpretive Data Percent cell count reference ranges are not reported, since discordance with absolute values may lead to misinterpretation of CBC data. Current Interpretive Data was last revised on 2017. Testing performed by: [address] [address] Basophil pct 0.4 % [facility] Comment: Interpretive Data Percent cell count reference ranges are not reported, since discordance with absolute values may lead to misinterpretation of CBC data. Current Interpretive Data was last revised on 2017. Testing performed by: [address] [address] Blood 08/30/2024 8:18 PM CDT 08/30/2024 8:24 PM CDT us Tico Coe Jr., MD LAB BLOOD ORDERABLES Fi nal Result Performing Organization Address City/[facility] Co de Phone Number [address] [place] [address] * Thyroid Function [place] (08/30/2024 8:18 PM CDT) TSH 0.97 0.30 - 4.20 mcIUnit/mL Comment:Testing performed by : [address] [address] Blood 08/30/2024 8:18 PM CDT 08/30/2024 8:24 PM CDT us Tico Coe Jr., MD LAB BLOOD ORDERABLES Fi nal Result Performing Organization Address City/[facility]/ZIP Co de Phone Number [address] [place] [address] * (ABNORMAL) CBC with auto differential (08/30/2024 8:18 PM CDT) [facility] WBC 17.1(H) 3.8 - 9.9 K/cumm Comment:Testing performed by : [address] [address] Hgb 13.5 11.9 - 15.5 g/dL YANCY Comment:Testing performed by : [address] [address] Hct 39.4 35.6 - 45.5 % YANCY Comment:Testing performed by : [address] [address] Plt 485(H) 150 - 400 K/cumm YANCY Comment:Testing performed by : [address] [address] MPV 9.0(L) 9.1 - 12.3 fL YANCY Comment:Testing performed by : [address], [address] RBC 4.65 3.90 - 5.20 M/cumm YANCY Comment:Testing performed by : [address] [address] MCV 84.7 81.3 - 96.4 fL YANCY Comment:Testing performed by : [address], [address] MCH 29.0 27.1 - 33.3 pg YANCY Comment:Testing performed by : [address], [address] MCHC 34.3 32.3 - 35.7 g/dL YANCY Comment:Testing performed by : [address], [address] RDW CV 12.4 11.1 - 14.9 % YANCY Comment:Testing performed by : [address], [address] RDW SD 37.6 35.7 - 48.1 fL YANCY Comment:Testing performed by : [address], [address] NRBC abs 0.00 0.00 - 0.01 K/cumm YANCY Comment:Testing performed by : [address] [address] Blood Venous blood specimen / Unknown 08/30/2024 8:18 PM CDT 08/30/2024 8:24 PM CDT Tico Coe Jr., MD LAB BLOOD ORDERABLES Fi nal Result Performing Organization Address [facility] de Phone Number [id number] [place] [address] * Ethanol (08/30/2024 8:18 PM CDT) Ethanol <10 <=10 mg/dL Comment: Interpretive Data Legal limit of intoxication > or = 80 mg/dL Levels > or = 400 mg/dL are potentially TOXIC. Current interpretive data was last revised on 2018. Testing performed by: [address] [address] Blood 08/30/2024 8:18 PM CDT 08/30/2024 8:24 PM CDT Tico Coe Jr., MD LAB BLOOD ORDERABLES Fi nal Result Performing Organization Address [facility] de Phone Number [address] [address] * Acetaminophen level (08/30/2024 8:18 PM CDT) [...] after ingestion Consult toxicology or poison control ([phone]) for unknown ingestion time. Current interpretive data was last revised 2023. Testing performed by: [address] [address] Blood 08/30/2024 8:18 PM CDT 08/30/2024 8:24 PM CDT Tico Coe Jr., MD LAB BLOOD ORDERABLES nal Result Performing Organization Address [facility] de Phone Number [id number] [address] * Salicylate level (08/30/2024 8:18 PM CDT) Pathologist [facility] Salicylate <1.0 <=1.0 mg/dL Comment: Interpretive Data Toxic: 30 mg/dL or greater. Current interpretive data was last revised 2023. Testing performed by: [address] [address] Blood 08/30/2024 8:18 PM CDT 08/30/2024 8:24 PM CDT Tico Coe Jr., MD LAB BLOOD ORDERABLES nal Result Performing Organization Address [facility] de Phone Number [address] [address] * Comprehensive metabolic panel (08/30/2024 8:18 PM CDT) [facility] Sodium 137 135 - 145 mmol/L Comment:Testing performed by : [address] [address] Potassium, pl 3.9 3.3 - 4.9 mmol/L YANCY Comment:Testing performed by : [address] [address] Chloride 98 97 - 110 mmol/L YANCY Comment:Testing performed by : [address] [address] CO2 26 22 - 32 mmol/L YANCY Comment:Testing performed by : [address] [address] Anion gap 13 2 - 15 mmol/L YANCY Comment:Testing performed by : [address] [address] BUN 10 6 - 25 mg/dL [facility] Comment:Testing performed by : [address] [address] Creatinine 1.00 0.60 - 1.10 mg/dL YANCY Comment:Testing performed by : [address] [address] Glucose 119 70 - 199 mg/dL [facility] Comment: Interpretive Data Fasting glucose >/= 126 [...] was last revised 2022. Testing performed by: [address] [address] Calcium 9.9 8.5 - 10.3 mg/dL [facility] Comment:Testing performed by : [address] [address] Bilirubin, total 0.5 0.1 - 1.2 mg/dL [facility] Comment:Testing performed by : [address] [address] Protein, pl 8.4 6.5 - 8.5 g/dL [facility] Comment:Testing performed by : [address] [address] Albumin 4.8 3.5 - 5.0 g/dL [facility] Comment:Testing performed by : [address] [address] Alk phos 78 40 - 130 Units/L YANCY Comment:Testing performed by : [address] [address] ALT 36 7 - 45 Units/L 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
--- OUTSIDE RECORDS SUMMARY | 2024-11-24 10:56 | XMS_ITS | Encounter Summary ---
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 us Historical Provider Final Res ult documented in this encounter Visit Diagnoses Not on filedocumented in this encounter Additional Health Concerns Infection Onset Date Last Indicated Resolved Time COVID: Suspected 08/30/2024 08/30/2024 08/30/2024 9:17 PM CDT documented as of this encounter Care Teams Bid Manager Relationship Specialty Start Date End Date No, Physician PCP - General 08/03/24 09/29/24 Sahara Rapp NP [address] [place] [address] PCP - General Nurse Practitioner 09/30/24 documented as of this encounter
[2024-11-24 11:17] LABS: Alanine Aminotransferase 23 U/L (6-35); Albumin Level 4.4 g/dL (3.5-5.1); Alkaline Phosphatase 66 U/L (38-126); Anion Gap 9 mmol/L (4-12); Aspartate Amino Transferase 44 U/L (14-36); Bilirubin,Total 0.3 mg/dL (0.2-1.3); Blood Urea Nitrogen 8 mg/dL (7-17); CRP < 0.5 mg/dL (<1.0); Calcium 9.4 mg/dL (8.4-10.2); Carbon Dioxide 24 mmol/L (22-30); Chloride 106 mmol/L (98-107); Estimated Glomerular Filt Rate > 60; Glucose 102 mg/dL (65-110); Potassium 3.7 mmol/L (3.4-5.0); Sodium 139 mmol/L (137-145); Total Protein 7.6 g/dL (6.3-8.2)
[2024-11-24 12:47] LABS: Erythrocyte Sedimentation Rate 24 mm/hr (0-20)
== END 2024-11-24 10:13 | disposition home or self-care (01) ==
PROVIDERS: Visit Provider Internal Medicine Hematology & Oncology
DX: D72.829 Elevated white blood cell count, unspecified (principal)
CPT/HCPCS: 36415; 80053; 85025; 85652; 86140; 88184